=== PATIENT | male | born 1945 | race Caucasian/White ===

== ENCOUNTER 2018-12-10 13:31 | Emergency (ER) | payer MEDICARE, MEDICAID ==
[2018-12-10] MEDS ORDERED: Ibuprofen 800 MG Tab ONE (14:00)
--- NOTE | 2018-12-10 14:06 | EDM.PDOC ---
ED HPI GENERAL MEDICAL PROBLEM - General Chief Complaint: General Stated Complaint: LOW BACK PAIN Time Seen by Provider: 12/10/18 13:45 Source of Information: Reports: Other ([facility] staff) History Limitations: Reports: Physical Impairment - History of Present Illness INITIAL COMMENTS - FREE TEXT/NARRATIVE: Pt is a 73/male resident of [facility]. According to [facility] staff, , patient fell and landed on his face forward, but did not hurt his face. this happened last night around 11 PM last night. Since then patient has been able to getup and walk, but today morning has been c/o of right sided hip pain and lower back pain. Hence he was brought into the emergency room for evaluation. On questioning patient , he points to the right hip and back with pain. No facial injuries or any other complaints per patient. Onset Date: 12/09/18 Onset Time: 23:05 Location: Reports: Back, Lower Extremity, Right - Related Data Allergies Allergy/AdvReac Type Severity Reaction Status Date / Time No Known Allergies Allergy Verified 08/18/18 08:50 Home Meds: Home Meds Aspirin [Ecotrin] 81 mg PO DAILY 12/03/14 [History] Doxazosin Mesylate 4 mg PO QPM 12/03/14 [History] Insulin Aspart [NovoLOG] 26 units SQ TID 12/03/14 [History] Insulin Glarg,Human.Rec.Analog [Lantus Solostar] 40 units SQ DAILY 12/03/14 [ History] Lisinopril/Hydrochlorothiazide [Lisinopril-Hctz 20-12.5 mg Tab] 1 tab PO DAILY 12/03/14 [History] Omeprazole [Prilosec] 20 mg PO DAILY 12/03/14 [History] Simvastatin 20 mg PO QPM 12/03/14 [History] amLODIPine Besylate [Amlodipine Besylate] 5 mg PO DAILY 12/03/14 [History] risperiDONE [RisperiDAL] 1.5 mg PO QPM 12/03/14 [History] FLUoxetine HCl [Fluoxetine HCl] 40 mg PO DAILY 12/04/14 [History] Multivitamin [Multi-Vitamin Daily] 1 tab PO DAILY 12/04/14 [History] Calcium Carbonate [Calcium] 600 mg PO BID 08/18/18 [History] Liraglutide [Victoza 3-Addy] 1.2 mg SUBCUT DAILY 08/18/18 [History] Past Medical History Cardiovascular History: Reports: High Cholesterol, Hypertension Respiratory History: Reports: None Gastrointestinal History: Reports: GERD Genitourinary History: Reports: Urinary Incontinence Other Musculoskeletal History: Uses walker Neurological History: Reports: CVA Psychiatric History: Reports: Depression Endocrine/Metabolic History: Reports: Diabetes, Type II Hematologic History: Reports: None Immunologic History: Reports: None Oncologic (Cancer) History: Reports: None Other Dermatologic History: Skin lesions, skin tags, numerous moles Social & Family History - Family History Family Medical History: Noncontributory - Caffeine Use Caffeine Use: Reports: Coffee, Soda - Living Situation & Occupation Living situation: Reports: Extended Care Facility Occupation: Disabled ED ROS GENERAL - Review of Systems Review Of Systems: Unable To Obtain (due to patient general health condition.) ED EXAM, GENERAL - Physical Exam Exam: See Below Exam Limited By: No Limitations General Appearance: Alert, WD/WN, Mild Distress Eye Exam: Bilateral Eye: EOMI, PERRL Ears: Normal External Exam, Normal Canal, Hearing Grossly Normal, Normal TMs Ear Exam: Bilateral Ear: Auricle Normal, Canal Normal, TM normal Nose: Normal Inspection, Normal Mucosa, No Blood Throat/Mouth: Normal Inspection, Normal Lips, Normal Teeth, Normal Gums, Normal Oropharynx, Normal Voice, No Airway Compromise Head: Atraumatic, Normocephalic Neck: Normal Inspection, Supple, Non-Tender, Full Range of Motion Respiratory/Chest: No Respiratory Distress, Lungs Clear, Normal Breath Sounds, No Accessory Muscle Use, Chest Non-Tender Cardiovascular: Normal Peripheral Pulses, Regular Rate, Rhythm, No Edema, No Gallop, No JVD, No Murmur, No Rub GI/Abdominal: Normal Bowel Sounds, Soft, Non-Tender, No Organomegaly, No Distention, No Abnormal Bruit, No Mass Back Exam: Normal Inspection, Decreased Range of Motion, Paraspinal Tenderness ( right lumbar paraspinal muscles). No: Vertebral Tenderness Extremities: Normal Inspection, Normal Capillary Refill, Limited Range of Motion (limited flexion of the right hip. Tender over the head of the right femur to palaption) Neurological: Alert Skin Exam: Warm, Intact Course - Vital Signs Text/Narrative:: Pt reassured that his Right hip and Lumbosacral X-ray appear normal. I do not see any fracture or deformity fo the joint and spine. He basically has mechanical pain from the fall. Advised to alternate cold with heat every 2-3 hrs. Motrin 800mg 3 times daily with food. Pain should gradually improve. Pt is a overweight mail, would benefit with physical therapy evaluation, to help with ambulation and proximal muscle strengthening of the pelvic girdle. Pt transferred back to [facility]. - Orders/Labs/Meds Orders: Active Orders 24 hr Category Date Time Status Hip Min 2V or 3V Rt [CR] Stat Exams 12/10/18 13:54 Ordered Lumbar Spine 2 or 3V [CR] Stat Exams 12/10/18 13:54 Ordered Departure - Departure Time of Disposition: 14:20 Disposition: DC/Tfer to [facility] Condition: Fair Clinical Impression: Mechanical low back pain, Hip pain, right - Discharge Information *PRESCRIPTION DRUG MONITORING PROGRAM REVIEWED*: Not Applicable *COPY OF PRESCRIPTION DRUG MONITORING REPORT IN PATIENT EMERSON: Not Applicable Referrals: PCP,None [Primary Care Provider] - Forms: ED Department Discharge Additional Instructions: Pt reassured that his Right hip and Lumbosacral X-ray appear normal. I do not see any fracture or deformity fo the joint and spine. He basically has mechanical pain from the fall. Advised to alternate cold with heat every 2-3 hrs. Motrin 800mg 3 times daily with food. Pain should gradually improve. Pt is a overweight mail, would benefit with physical therapy evaluation, to help with ambulation and proximal muscle strengthening of the pelvic girdle. Pt transferred back to [facility]. - Problem List & Annotations (1) Hip pain, right SNOMED Code(s): 80337584 Code(s): M25.551 - PAIN IN RIGHT HIP Status: Acute Current Visit: Yes (2) Mechanical low back pain SNOMED Code(s): 027426181 Code(s): M54.5 - LOW BACK PAIN Status: Acute Current Visit: Yes - Problem List Review Problem List Initiated/Reviewed/Updated: Yes - My Orders Last 24 Hours: My Active Orders 12/10/18 13:54 Hip Min 2V or 3V Rt [CR] Stat Lumbar Spine 2 or 3V [CR] Stat - Assessment/Plan Last 24 Hours: My Active Orders 12/10/18 13:54 Hip Min 2V or 3V Rt [CR] Stat Lumbar Spine 2 or 3V [CR] Stat Assessment:: Mechanical low back pain and right hip pain Plan: Pt reassured that his Right hip and Lumbosacral X-ray appear normal. I do not see any fracture or deformity fo the joint and spine. He basically has mechanical pain from the fall. Advised to alternate cold with heat every 2-3 hrs. Motrin 800mg 3 times daily with food. Pain should gradually improve. Pt is a overweight mail, would benefit with physical therapy evaluation, to help with ambulation and proximal muscle strengthening of the pelvic girdle. Pt transferred back to care center.
[2018-12-10 15:00] VITALS: BP 135/69
--- NOTE | 2018-12-11 11:29 | CR ---
DATE OF SERVICE: 12/10/18 CLINICAL DATA: fall LUMBAR SPINE: There is diffuse osteopenia. there is slight compression deformity of the superior end plate of L1, age indeterminate. The remaining vertebra are of average height and in good alignment. There is mild degenerative disc disease at multiple levels. There is mild facet joint hypertrophy of the mid and lower lumbar spine. No focal lytic or blastic bone lesions. There is calcification of the abdominal aorta. [id number] [facility]
--- NOTE | 2018-12-11 11:32 | CR ---
DATE OF SERVICE: 12/10/18 CLINICAL DATA: fall RIGHT HIP: Minimal osteoarthritic changes in the right hip joint. No acute abnormalities. No lytic or blastic bone lesions. [id number] [facility]
== END 2018-12-10 14:30 ==
LOC: LB.ED 13:31
DX: M54.5 Low back pain (principal); M25.551 Pain in right hip; I10 Essential (primary) hypertension; E11.9 Type 2 diabetes mellitus without complications; K21.9 Gastro-esophageal reflux disease without esophagitis; E78.00 Pure hypercholesterolemia, unspecified; Z79.4 Long term (current) use of insulin; Z79.899 Other long term (current) drug therapy; Z79.82 Long term (current) use of aspirin
CPT/HCPCS: 72100; 73502-RT; 99283; 99284-25; A9270-GY

== ENCOUNTER 2019-06-29 15:16 | Emergency (ER) | payer MEDICARE, MEDICAID ==
[2019-06-29] MEDS ORDERED: Ketorolac 30 MG/ML SDV IVPUSH ONE (15:28)
[2019-06-29] MEDS ORDERED: Sodium Chloride 0.9% 10 ML Syringe FLUSH PRN (15:28)
[2019-06-29 15:54] VITALS: BP 144/85; PULSE 79
--- NOTE | 2019-06-29 16:54 | EDM.PDOC ---
ED HPI GENERAL MEDICAL PROBLEM - General Chief Complaint: General Stated Complaint: chest pain Time Seen by Provider: 06/29/19 16:00 Source of Information: Reports: Patient, [facility] History Limitations: Reports: No Limitations - History of Present Illness INITIAL COMMENTS - FREE TEXT/NARRATIVE: This is a 73yo M with complaints of chest pain. He currently states the pain has resolved. It was reported by nursing staff he was having shortness of breath but had a pulse ox of 96% and then some abdominal pains that he denies in the ER. He also denies any shortness of breath at this time. He states he is hungry and just wants to eat. Onset: Unknown/Unsure Duration: Resolved Prior to Arrival Location: Reports: Chest Improves with: Reports: None Worsens with: Reports: None Middle Chest Pain Score (Numeric/FACES): 5 - Related Data Allergies Allergy/AdvReac Type Severity Reaction Status Date / Time No Known Allergies Allergy Verified 08/18/18 08:50 Home Meds: Home Meds Aspirin [Ecotrin EC] 81 mg PO DAILY 12/03/14 [History] Doxazosin Mesylate 4 mg PO QPM 12/03/14 [History] Insulin Aspart [NovoLOG] 26 units SQ TID 12/03/14 [History] Insulin Glarg,Human.Rec.Analog [Lantus Solostar] 40 units SQ DAILY 12/03/14 [ History] Lisinopril/Hydrochlorothiazide [Lisinopril-Hctz 20-12.5 mg Tab] 1 tab PO DAILY 12/03/14 [History] Omeprazole [Prilosec] 20 mg PO DAILY 12/03/14 [History] Simvastatin 20 mg PO QPM 12/03/14 [History] amLODIPine Besylate [Amlodipine Besylate] 5 mg PO DAILY 12/03/14 [History] risperiDONE [RisperiDAL] 1.5 mg PO QPM 12/03/14 [History] FLUoxetine HCl [Fluoxetine HCl] 40 mg PO DAILY 12/04/14 [History] Multivitamin [Multi-Vitamin Daily] 1 tab PO DAILY 12/04/14 [History] Calcium Carbonate [Calcium] 600 mg PO BID 08/18/18 [History] Liraglutide [Victoza 3-Addy] 1.2 mg SUBCUT DAILY 08/18/18 [History] Past Medical History Cardiovascular History: Reports: High Cholesterol, Hypertension Respiratory History: Reports: None Gastrointestinal History: Reports: GERD Genitourinary History: Reports: Urinary Incontinence Other Musculoskeletal History: Uses walker Neurological History: Reports: CVA Psychiatric History: Reports: Depression Endocrine/Metabolic History: Reports: Diabetes, Type II Hematologic History: Reports: None Immunologic History: Reports: None Oncologic (Cancer) History: Reports: None Other Dermatologic History: Skin lesions, skin tags, numerous moles Social & Family History - Family History Family Medical History: Noncontributory - Caffeine Use Caffeine Use: Reports: Coffee, Soda - Living Situation & Occupation Living situation: Reports: Extended Care Facility Occupation: Disabled ED ROS GENERAL - Review of Systems Review Of Systems: ROS reveals no pertinent complaints other than HPI. ED EXAM, GENERAL - Physical Exam Exam: See Below Exam Limited By: No Limitations General Appearance: Alert, WD/WN, No Apparent Distress Eye Exam: Bilateral Eye: EOMI, PERRL Ears: Normal External Exam Nose: Normal Inspection Throat/Mouth: Normal Inspection Head: Atraumatic, Normocephalic Neck: Normal Inspection Respiratory/Chest: No Respiratory Distress Cardiovascular: Normal Peripheral Pulses GI/Abdominal: Normal Bowel Sounds Back Exam: Normal Inspection Extremities: Normal Inspection Course - Vital Signs Last Recorded V/S: Last Vital Signs Temp 36.9 C 06/29/19 15:52 Pulse 79 06/29/19 15:52 Resp 16 06/29/19 15:52 BP 144/85 H 06/29/19 15:52 Pulse Ox 95 06/29/19 15:52 - Orders/Labs/Meds Orders: Active Orders 24 hr Category Date Time Status EKG Documentation Completion [RC] ASDIRECTED Care 06/29/19 15:28 Active Chest 1V Frontal [CR] Stat Exams 06/29/19 15:28 Taken Sodium Chloride 0.9% [Saline Flush] Med 06/29/19 15:28 Active 10 ml FLUSH ASDIRECTED PRN Peripheral IV Insertion Adult [OM.PC] Routine Oth 06/29/19 15:28 Ordered EKG 12 Lead [EK] Routine Ther 06/29/19 15:27 Ordered Medication Orders Sodium Chloride (Saline Flush) 10 ml FLUSH ASDIRECTED PRN PRN Reason: Keep Vein Open Labs: Laboratory Tests 06/29/19 06/29/19 Range/Units 15:40 15:40 WBC 7.8 (4.0-11.0) K/uL RBC 3.88 L (4.50-6.50) M/uL Hgb 10.7 L (13.0-18.0) g/dL Hct 35.1 L (40.0-54.0) % MCV 91 (76-96) fL MCH 27.6 (27.0-32.0) pg MCHC 30.5 L (31.0-35.0) g/dL RDW 14.7 (11.0-16.0) % Plt Count 260 (150-400) K/uL MPV 10.2 H (6.0-10.0) fL Neut % (Auto) 75.1 H (45.0-70.0) % Lymph % (Auto) 15.1 L (20.0-40.0) % [place] % (Auto) 5.5 (3.0-10.0) % Eos % (Auto) 2.8 (1.0-5.0) % Baso % (Auto) 1.5 H (0.0-0.5) % Neut # (Auto) 5.82 (2.00-7.50) K/uL Lymph # (Auto) 1.17 L (1.50-4.00) K/uL [place] # (Auto) 0.43 (0.20-0.80) K/uL Eos # (Auto) 0.22 (0.04-0.40) K/uL Baso # (Auto) 0.12 H (0.02-0.10) K/uL Sodium 143 (136-145) mmol/L Potassium 4.0 (3.5-5.1) mmol/L Chloride 106 (98-107) mmol/L Carbon Dioxide 26.0 (21.0-32.0) mmol/L Anion Gap 15.0 (5.0-15.0) mmol/L BUN 31 H (8-26) mg/dL Creatinine 1.25 (0.70-1.30) mg/dL Est Cr Clr Drug Dosing 52.44 mL/min Estimated GFR (MDRD) 57 L (>60) MLS/MIN BUN/Creatinine Ratio 24.8 (6-25) Glucose 215 H D (74-100) mg/dL Calcium 8.4 L (8.5-10.1) mg/dL Total Bilirubin 0.3 D (0.0-1.0) mg/dL AST 15 (15-37) U/L ALT 16 (12-78) U/L Alkaline Phosphatase 66 (46-116) U/L Troponin I < 0.017 (0.000-0.060) ng/mL Total Protein 6.7 (6.4-8.2) g/dL Albumin 3.1 L (3.4-5.0) g/dL Globulin 3.6 (2.2-4.2) g/dL Albumin/Globulin Ratio 0.9 (0.8-2.0) TSH, Ultra Sensitive 3.894 H D (0.358-3.740) uIU/mL Meds: Medications Generic Name Dose Route Start Last Admin Trade Name Freq PRN Reason Stop Dose Admin Sodium Chloride 10 ml 06/29/19 15:28 Saline Flush FLUSH ASDIRECTED PRN Keep Vein Open Discontinued Medications Generic Name Dose Route Start Last Admin Trade Name Freq PRN Reason Stop Dose Admin Ketorolac Tromethamine 30 mg 06/29/19 15:28 Toradol IVPUSH 06/29/19 15:29 ONETIME ONE Departure - Departure Time of Disposition: 17:00 Disposition: DC/Tfer to [facility] Condition: Good Clinical Impression: Anxiety attack - Discharge Information Instructions: Panic Attack, [id number] Referrals: PCP,None [Primary Care Provider] - Forms: ED Department Discharge Care Plan Goals: No changes in pts plan of care. Return to hospital or clinic if symptoms return or worsen. - Problem List & Annotations (1) Anxiety attack SNOMED Code(s): 965035619 Code(s): F41.0 - PANIC DISORDER [EPISODIC PAROXYSMAL ANXIETY] Status: Acute Current Visit: Yes - Problem List Review Problem List Initiated/Reviewed/Updated: Yes - My Orders Last 24 Hours: My Active Orders 06/29/19 15:27 EKG 12 Lead [EK] Routine 06/29/19 15:28 EKG Documentation Completion [RC] ASDIRECTED Chest 1V Frontal [CR] Stat Sodium Chloride 0.9% [Saline Flush] 10 ml FLUSH ASDIRECTED PRN Peripheral IV Insertion Adult [OM.PC] Routine - Assessment/Plan Last 24 Hours: My Active Orders 06/29/19 15:27 EKG 12 Lead [EK] Routine 06/29/19 15:28 EKG Documentation Completion [RC] ASDIRECTED Chest 1V Frontal [CR] Stat Sodium Chloride 0.9% [Saline Flush] 10 ml FLUSH ASDIRECTED PRN Peripheral IV Insertion Adult [OM.PC] Routine Plan: Counseled patient on anxiety and continued f/u as needed. Discussed f/u if symptoms return. No changes to his medications.
--- NOTE | 2019-06-30 11:48 | CR ---
DATE OF SERVICE: 06/29/19 CLINICAL DATA: chest pain AP PORTABLE CHEST: Comparison is made to a prior exam dated 04/18/19. The heart is enlarged. It has increased in size from the prior exam. There is pulmonary vascular congestion. There is mild interstitial edema throughout both lungs. The findings are consistent with congestive failure. No pneumothorax. No pleural effusions. [id number] [facility]
== END 2019-06-29 17:06 ==
LOC: LB.ED 15:16
DX: F41.9 Anxiety disorder, unspecified (principal); I10 Essential (primary) hypertension; K21.9 Gastro-esophageal reflux disease without esophagitis; E11.9 Type 2 diabetes mellitus without complications; Z86.73 Personal history of transient ischemic attack (TIA), and cerebral infarction without residual deficits; Z79.4 Long term (current) use of insulin; Z79.899 Other long term (current) drug therapy; Z79.82 Long term (current) use of aspirin
CPT/HCPCS: 36415; 71045; 80053; 84443; 84484; 85025; 93005; 99285-25

== ENCOUNTER → 2019-09-01 | Outpatient (CLI) | payer MEDICARE, MEDICAID | LOC: LB.CC 12:38 | PROVIDERS: ATTEND Nurse Practitioner Family | DX: R30.0 Dysuria (principal) | CPT/HCPCS: 81001 ==

== ENCOUNTER 2019-09-14 16:35 | Emergency (ER) | payer MEDICARE, MEDICAID ==
[2019-09-14] MEDS: Aspirin 81 MG Tab.Chew PO ONE (16:49)
[2019-09-14] MEDS ORDERED: Sodium Chloride 0.9% 10 ML Syringe FLUSH PRN (16:57)
[2019-09-14 17:21] VITALS: PULSE 90
[2019-09-14 17:35] VITALS: BP 131/75
[2019-09-14] MEDS: GI Cocktail Oral Solution 30 ML PO ONE (17:35)
--- NOTE | 2019-09-14 18:10 | CR ---
CLINICAL DATA: Chest pain. PORTABLE CHEST, 14 SEPTEMBER 2019: Comparison made to a prior exam dated June 29, 2019. The heart remains enlarged, unchanged. The pulmonary vascular congestion and interstitial edema on the prior exam have improved. The lungs are clear. No pneumothorax. No pleural effusions. Otherwise, unchanged from the prior. Job: [id number] [facility]
--- NOTE | 2019-09-14 22:50 | ER ---
REASON FOR ER VISIT: Chest pain. HISTORY OF PRESENT ILLNESS: This patient was sent over from the [facility] because of low anterior chest pain. No other details were conveyed to us. The patient by the time he arrived in the ER, stated that he wanted to return back to the [place] [facility] because he was hungry. He did not have any nausea or diaphoresis. On questioning, he denied any radiation down his nose, down his arm, or up his neck. He denies any nausea. PAST MEDICAL HISTORY: Significant for the followin. Hypertension. 2. History of UTI. 3. Type 2 diabetes. 4. History of atypical chest pain. 5. Low back pain. 6. Anxiety. 7. Hypercholesterolemia. MEDICATIONS: Reviewed. Please see electronic medical record. ALLERGIES: NONE TO MEDICATIONS. REVIEW OF SYSTEMS: Pertinent positives and negatives as listed in the HPI. PHYSICAL EXAMINATION: GENERAL: Reveals he seems somewhat restless and anxious and complaining of being hungry. VITAL SIGNS: He is afebrile. Blood pressure 133/61, pulse of 90, respiratory rate is 20, O2 sats 100% on room air. HEENT: He looks somewhat pale. No scleral icterus is noted. Oropharynx is dry. NECK: No JVD. No adenopathy. CHEST: Clear to auscultation with good breath sounds. No wheezes, rhonchi, or rales. CARDIAC: Regular rate without murmur. ABDOMEN: Obese and soft. He does have some mild tenderness in the epigastrium to deep palpation but no rebound or guarding. No percussion tenderness. No hepatosplenomegaly is noted. EXTREMITIES: Normal. His feet are pink and warm. I do not feel ankle pulses. There is minimal edema noted. LABORATORY DATA: [place] [address] [address]. His CMP reveals normal electrolytes. His creatinine is elevated at 1.5 with a GFR of 43. His glucose is 196. His troponin is within normal limits. His is 12-lead EKG shows no acute changes. His chest x-ray was a portable film, and it does appear that he has cardiomegaly, although the technique has to be taken into consideration. He has no sign of infiltrate or pulmonary edema. FURTHER EMERGENCY ROOM COURSE: He continued to complain of being hungry and he when asked 1 time if he had some chest pain, he said yes and then he pointed to his epigastrium, when asked again he said he had no pain, but he was hungry. IMPRESSION: Atypical chest pain with epigastric discomfort, of uncertain origin. PLAN: We will go and ahead and return him to the [place] [facility]. He has been here for similar symptom complex in the past, and I feel comfortable given his EKG and troponin findings. ROSY /[id number]
== END 2019-09-14 17:55 | disposition home or self-care (01) ==
LOC: LB.ED 16:35
DX: R07.89 Other chest pain (principal); R10.13 Epigastric pain; I10 Essential (primary) hypertension; E11.9 Type 2 diabetes mellitus without complications
CPT/HCPCS: 36415; 71045; 80053; 84484; 85025; 93005; 99285; A9270

== ENCOUNTER 2020-11-20 12:19 | Observation (INO) | payer MEDICARE, MEDICAID ==
[2020-11-20] MEDS ORDERED: Sodium Chloride 0.9% 1,000 ML IV SCH ×2 (13:00→22:00)
--- NOTE | 2020-11-20 13:01 | EDM.PDOC ---
ED HPI GENERAL MEDICAL PROBLEM - General Chief Complaint: General Stated Complaint: STROKE SYMPTOMS Time Seen by Provider: 11/20/20 12:30 Source of Information: Reports: Patient - History of Present Illness INITIAL COMMENTS - FREE TEXT/NARRATIVE: 75 years old male known diabetic ,HTN & anti-psychotic meds having repeated episodes of TIA was living in custodial home & brought to ER for unresponsive - The patient was not answering to questions -only respond to painful . Proper history was not available - prison said that he was not responding since morning - denies fever,nausea/vomiting ,headche ,chest pain ,cough,abd pain - Related Data Allergies Allergy/AdvReac Type Severity Reaction Status Date / Time No Known Allergies Allergy Verified 11/20/20 12:42 Home Meds: Home Meds Insulin Aspart [NovoLOG] 20 units SQ TID 12/03/14 [History] Simvastatin 20 mg PO QPM 12/03/14 [History] risperiDONE [RisperiDAL] 1 mg PO BID 12/03/14 [History] FLUoxetine HCl [Fluoxetine HCl] 50 mg PO DAILY 12/04/14 [History] Multivitamin [Multi-Vitamin Daily] 1 tab PO DAILY 12/04/14 [History] Calcium Carbonate [Calcium] 600 mg PO BID 08/18/18 [History] Liraglutide [Victoza 3-Addy] 0.6 mg SUBCUT DAILY 08/18/18 [History] Acetaminophen [Tylenol] 650 mg PO TID 11/20/20 [History] Calcitonin,[place],Synthetic [Calcitonin-[place]] 1 spray INH DAILY 11/20/20 [History] Ciprofloxacin HCl [Cipro] 500 mg PO BID 11/20/20 [History] Famotidine 20 mg PO BID 11/20/20 [History] Furosemide [Lasix] 40 mg PO BID 11/20/20 [History] Gabapentin [Neurontin] 100 mg PO BID 11/20/20 [History] Insulin Detemir [Levemir Flextouch] 40 unit SQ BEDTIME 11/20/20 [History] Loperamide HCl [Imodium A-D] 2 mg PO Q1H 11/20/20 [History] Losartan Potassium [Cozaar] 75 mg PO DAILY 11/20/20 [History] Magnesium Hydroxide [Milk of Magnesia] 30 ml PO BID PRN 11/20/20 [History] Melatonin 6 mg PO BEDTIME 11/20/20 [History] Meloxicam 7.5 mg PO BID 11/20/20 [History] Menthol [Biofreeze] 1 applic TOP BID 11/20/20 [History] Potassium Chloride [Klor-Con 10] 10 meq PO DAILY 11/20/20 [History] hydrOXYzine HCL [Hydroxyzine HCl] 25 mg PO TID 11/20/20 [History] hydroCHLOROthiazide [Hydrochlorothiazide] 25 mg PO DAILY 11/20/20 [History] traZODone HCl [Trazodone HCl] 50 mg PO DAILY 11/20/20 [History] Past Medical History Cardiovascular History: Reports: High Cholesterol, Hypertension Respiratory History: Reports: None Gastrointestinal History: Reports: GERD Genitourinary History: Reports: Urinary Incontinence Other Musculoskeletal History: Uses walker Neurological History: Reports: CVA Psychiatric History: Reports: Depression Endocrine/Metabolic History: Reports: Diabetes, Type II Hematologic History: Reports: None Immunologic History: Reports: None Oncologic (Cancer) History: Reports: None Other Dermatologic History: Skin lesions, skin tags, numerous moles Social & Family History - Family History Family Medical History: No Pertinent Family History - Caffeine Use Caffeine Use: Reports: Coffee, Soda - Living Situation & Occupation Living situation: Reports: Extended Care Facility Occupation: Disabled ED ROS GENERAL - Review of Systems Review Of Systems: See Below Constitutional: Reports: ROS unobtainable Respiratory: Reports: No Symptoms Cardiovascular: Reports: No Symptoms, Other (found unconcious ) GI/Abdominal: Reports: No Symptoms Musculoskeletal: Reports: No Symptoms Neurological: Reports: Dizziness, Other (unresponsive ) ED EXAM, GENERAL - Physical Exam Exam: See Below Exam Limited By: Altered Mental Status Head: Atraumatic, Normocephalic Respiratory/Chest: No Respiratory Distress Cardiovascular: Regular Rate, Rhythm, No Edema, No Gallop, No JVD, No Murmur GI/Abdominal: Soft, Non-Tender, No Organomegaly, No Distention, No Abnormal Bruit Neurological: Slow to Respond, Unresponsive, Memory Loss Remote Events, Memory Loss Recent Events, Abnormal Reflexes, Sensory/Motor Deficit (left leg & left arm not responding ) Course - Vital Signs Text/Narrative:: Pt came from detention & was unresponsive I/V line established Pt was not responding to painful stimuli . I/V hydration started . Patient was not moving his left side of body /discuss EKG & condition of th patient with E-hospitalist Call to Neurologist at [facility] dr Borrero to discuss the TPA -she said that he is not candidate for for TPA -She said that ask for endovascular on [facility] for endovascular removal of clot . I spoke with DR Jane - He did agree for the interventional procedure -I spoke back DR Borrero * dr Becerra to transfer to [facility] - Arrangements made for transfer -BUt family decline Discuss with family & admitted for observation contact with E hospitalist to see the patient PT had DNR in place Last Recorded V/S: Last Vital Signs Temp 97.7 F 11/20/20 15:41 Pulse 86 11/20/20 18:31 Resp 16 11/20/20 18:31 BP 188/85 H 11/20/20 18:31 Pulse Ox 100 11/20/20 18:31 - Orders/Labs/Meds Orders: Active Orders 24 hr Category Date Time Status Patient Status [ADT] Routine ADT 11/20/20 18:30 Active EKG Documentation Completion [RC] ASDIRECTED Care 11/20/20 12:38 Active Oxygen Therapy [RC] PRN Care 11/20/20 18:30 Active VTE/DVT Education [RC] Per Unit Routine Care 11/20/20 18:30 Active Vital Signs [RC] Q4H Care 11/20/20 18:30 Active NPO [Nothing Per Oral Diet] [DIET] Diet 11/21/20 Breakfast Ordered CULTURE URINE [RM] Stat Lab 11/20/20 13:20 Received Sodium Chloride 0.9% [Normal Saline] 1,000 ml Med 11/20/20 13:00 Active IV ASDIRECTED Resuscitation Status Routine Resus Stat 11/20/20 18:29 Ordered Medication Orders Sodium Chloride (Normal Saline) 1,000 mls @ 250 mls/hr IV ASDIRECTED ZAHRAA Last Admin: 11/20/20 12:59 Dose: 250 mls/hr Documented by: CHERELLE Labs: Laboratory Tests 11/20/20 11/20/20 11/20/20 Range/Units 12:36 12:36 12:36 WBC 9.3 D (4.0-11.0) K/uL RBC 3.91 L (4.50-6.50) M/uL Hgb 11.6 L (13.0-18.0) g/dL Hct 37.8 L (40.0-54.0) % MCV 97 H (76-96) fL MCH 29.7 (27.0-32.0) pg MCHC 30.7 L (31.0-35.0) g/dL RDW 13.7 (11.0-16.0) % Plt Count 249 (150-400) K/uL MPV 10.9 H (6.0-10.0) fL Neut % (Auto) 76.0 H (45.0-70.0) % Lymph % (Auto) 12.6 L (20.0-40.0) % [place] % (Auto) 6.4 (3.0-10.0) % Eos % (Auto) 3.6 (1.0-5.0) % Baso % (Auto) 1.4 H (0.0-0.5) % Neut # (Auto) 7.05 (2.00-7.50) K/uL Lymph # (Auto) 1.17 L (1.50-4.00) K/uL [place] # (Auto) 0.59 (0.20-0.80) K/uL Eos # (Auto) 0.33 (0.04-0.40) K/uL Baso # (Auto) 0.13 H (0.02-0.10) K/uL PT 10.6 (9.0-11.5) sec INR 1.0 (1.0-3.5) D-Dimer, Quantitative 714 H (0-400) ng/mL Sodium (136-145) mmol/L Potassium (3.5-5.1) mmol/L Chloride (98-107) mmol/L Carbon Dioxide (21.0-32.0) mmol/L Anion Gap (5.0-15.0) mmol/L BUN (8-26) mg/dL Creatinine (0.70-1.30) mg/dL Est Cr Clr Drug Dosing Estimated GFR (MDRD) (>60) MLS/MIN BUN/Creatinine Ratio (6-25) Glucose (74-100) mg/dL Calcium (8.5-10.1) mg/dL Magnesium (1.8-2.4) mg/dL Total Bilirubin (0.0-1.0) mg/dL AST (15-37) U/L ALT (12-78) U/L Alkaline Phosphatase (46-116) U/L Troponin I (0.000-0.060) ng/mL Total Protein (6.4-8.2) g/dL Albumin (3.4-5.0) g/dL Globulin (2.2-4.2) g/dL Albumin/Globulin Ratio (0.8-2.0) Urine Color Urine Appearance (CLEAR) Urine pH (5.0-8.0) Ur Specific [place] (1.003-1.030) Urine Protein (NEGATIVE) mg/dL Urine Glucose (UA) (NEGATIVE) mg/dL Urine Ketones (NEGATIVE) mg/dL Urine Occult Blood (NEGATIVE) Urine Nitrite (NEGATIVE) Urine Bilirubin (NEGATIVE) Urine Urobilinogen (0.2-1.0) E.U./dL Ur Leukocyte Esterase (NEGATIVE) U Hyaline Cast (Auto) /HPF Urine RBC Urine WBC /HPF Urine Bacteria /HPF SARS-CoV-2 RNA (BHARAT) (NEGATIVE) 11/20/20 11/20/20 11/20/20 Range/Units 12:36 13:20 13:20 WBC (4.0-11.0) K/uL RBC (4.50-6.50) M/uL Hgb (13.0-18.0) g/dL Hct (40.0-54.0) % MCV (76-96) fL MCH (27.0-32.0) pg MCHC (31.0-35.0) g/dL RDW (11.0-16.0) % Plt Count (150-400) K/uL MPV (6.0-10.0) fL Neut % (Auto) (45.0-70.0) % Lymph % (Auto) (20.0-40.0) % [place] % (Auto) (3.0-10.0) % Eos % (Auto) (1.0-5.0) % Baso % (Auto) (0.0-0.5) % Neut # (Auto) (2.00-7.50) K/uL Lymph # (Auto) (1.50-4.00) K/uL [place] # (Auto) (0.20-0.80) K/uL Eos # (Auto) (0.04-0.40) K/uL Baso # (Auto) (0.02-0.10) K/uL PT (9.0-11.5) sec INR (1.0-3.5) D-Dimer, Quantitative (0-400) ng/mL Sodium 146 H (136-145) mmol/L Potassium 4.2 (3.5-5.1) mmol/L Chloride 105 (98-107) mmol/L Carbon Dioxide 39.4 H (21.0-32.0) mmol/L Anion Gap 5.8 (5.0-15.0) mmol/L BUN 52 H* D (8-26) mg/dL Creatinine 2.52 H (0.70-1.30) mg/dL Est Cr Clr Drug Dosing TNP Estimated GFR (MDRD) 25 L (>60) MLS/MIN BUN/Creatinine Ratio 20.6 (6-25) Glucose 260 H (74-100) mg/dL Calcium 9.8 (8.5-10.1) mg/dL Magnesium 2.3 (1.8-2.4) mg/dL Total Bilirubin 0.3 (0.0-1.0) mg/dL AST 14 L (15-37) U/L ALT 22 (12-78) U/L Alkaline Phosphatase 80 (46-116) U/L Troponin I 0.029 D (0.000-0.060) ng/mL Total Protein 7.0 (6.4-8.2) g/dL Albumin 3.2 L (3.4-5.0) g/dL Globulin 3.8 (2.2-4.2) g/dL Albumin/Globulin Ratio 0.8 (0.8-2.0) Urine Color Yellow Urine Appearance Clear (CLEAR) Urine pH 6.5 (5.0-8.0) Ur Specific [place] 1.020 (1.003-1.030) Urine Protein Negative (NEGATIVE) mg/dL Urine Glucose (UA) Negative (NEGATIVE) mg/dL Urine Ketones Negative (NEGATIVE) mg/dL Urine Occult Blood Negative (NEGATIVE) Urine Nitrite Negative (NEGATIVE) Urine Bilirubin Negative (NEGATIVE) Urine Urobilinogen 0.2 (0.2-1.0) E.U./dL Ur Leukocyte Esterase Trace H (NEGATIVE) U Hyaline Cast (Auto) Moderate /HPF Urine RBC Not Reportable Urine WBC 0-5 H /HPF Urine Bacteria Few /HPF SARS-CoV-2 RNA (BHARAT) (NEGATIVE) 11/20/20 Range/Units 15:48 WBC (4.0-11.0) K/uL RBC (4.50-6.50) M/uL Hgb (13.0-18.0) g/dL Hct (40.0-54.0) % MCV (76-96) fL MCH (27.0-32.0) pg MCHC (31.0-35.0) g/dL RDW (11.0-16.0) % Plt Count (150-400) K/uL MPV (6.0-10.0) fL Neut % (Auto) (45.0-70.0) % Lymph % (Auto) (20.0-40.0) % [place] % (Auto) (3.0-10.0) % Eos % (Auto) (1.0-5.0) % Baso % (Auto) (0.0-0.5) % Neut # (Auto) (2.00-7.50) K/uL Lymph # (Auto) (1.50-4.00) K/uL [place] # (Auto) (0.20-0.80) K/uL Eos # (Auto) (0.04-0.40) K/uL Baso # (Auto) (0.02-0.10) K/uL PT (9.0-11.5) sec INR (1.0-3.5) D-Dimer, Quantitative (0-400) ng/mL Sodium (136-145) mmol/L Potassium (3.5-5.1) mmol/L Chloride (98-107) mmol/L Carbon Dioxide (21.0-32.0) mmol/L Anion Gap (5.0-15.0) mmol/L BUN (8-26) mg/dL Creatinine (0.70-1.30) mg/dL Est Cr Clr Drug Dosing Estimated GFR (MDRD) (>60) MLS/MIN BUN/Creatinine Ratio (6-25) Glucose (74-100) mg/dL Calcium (8.5-10.1) mg/dL Magnesium (1.8-2.4) mg/dL Total Bilirubin (0.0-1.0) mg/dL AST (15-37) U/L ALT (12-78) U/L Alkaline Phosphatase (46-116) U/L Troponin I (0.000-0.060) ng/mL Total Protein (6.4-8.2) g/dL Albumin (3.4-5.0) g/dL Globulin (2.2-4.2) g/dL Albumin/Globulin Ratio (0.8-2.0) Urine Color Urine Appearance (CLEAR) Urine pH (5.0-8.0) Ur Specific [place] (1.003-1.030) Urine Protein (NEGATIVE) mg/dL Urine Glucose (UA) (NEGATIVE) mg/dL Urine Ketones (NEGATIVE) mg/dL Urine Occult Blood (NEGATIVE) Urine Nitrite (NEGATIVE) Urine Bilirubin (NEGATIVE) Urine Urobilinogen (0.2-1.0) E.U./dL Ur Leukocyte Esterase (NEGATIVE) U Hyaline Cast (Auto) /HPF Urine RBC Urine WBC /HPF Urine Bacteria /HPF SARS-CoV-2 RNA (BHARAT) Negative (NEGATIVE) Meds: Medications Generic Name Dose Route Start Last Admin Trade Name Freq PRN Reason Stop Dose Admin Sodium Chloride 1,000 mls @ 250 mls/hr 11/20/20 13:00 11/20/20 12:59 Normal Saline IV 250 mls/hr ASDIRECTED ZAHRAA Administration Departure - Departure Time of Disposition: 19:30 Disposition: Refer to Observation Condition: Poor, Serious, Critical Clinical Impression: Stroke - Discharge Information Sepsis Event Note (ED) - Focused Exam Vital Signs: Vital Signs Temp Pulse Resp BP Pulse Ox 11/20/20 18:31 86 16 188/85 H 100 11/20/20 18:00 194/78 H 11/20/20 16:08 82 20 153/80 H 98 11/20/20 15:41 97.7 F 90 16 164/96 H 98 11/20/20 15:23 84 170/80 H 98 11/20/20 14:53 85 18 168/78 H 99 11/20/20 13:23 97.7 F 90 18 155/72 H 99 11/20/20 12:24 97.7 F 80 18 155/72 H 98 - Problem List & Annotations (1) Stroke SNOMED Code(s): 058311526 Code(s): I63.9 - CEREBRAL INFARCTION, UNSPECIFIED Status: Acute Current Visit: Yes Onset Date: ~11/20/20 - My Orders Last 24 Hours: My Active Orders 11/20/20 12:38 EKG Documentation Completion [RC] ASDIRECTED 11/20/20 13:00 Sodium Chloride 0.9% [Normal Saline] 1,000 ml IV ASDIRECTED 11/20/20 13:20 CULTURE URINE [RM] Stat 11/20/20 18:29 Resuscitation Status Routine 11/20/20 18:30 Patient Status [ADT] Routine Oxygen Therapy [RC] PRN VTE/DVT Education [RC] Per Unit Routine Vital Signs [RC] Q4H 11/21/20 Breakfast NPO [Nothing Per Oral Diet] [DIET] - Assessment/Plan Last 24 Hours: My Active Orders 11/20/20 12:38 EKG Documentation Completion [RC] ASDIRECTED 11/20/20 13:00 Sodium Chloride 0.9% [Normal Saline] 1,000 ml IV ASDIRECTED 11/20/20 13:20 CULTURE URINE [RM] Stat 11/20/20 18:29 Resuscitation Status Routine 11/20/20 18:30 Patient Status [ADT] Routine Oxygen Therapy [RC] PRN VTE/DVT Education [RC] Per Unit Routine Vital Signs [RC] Q4H 11/21/20 Breakfast NPO [Nothing Per Oral Diet] [DIET]
--- NOTE | 2020-11-20 17:18 | CT ---
DATE OF SERVICE: 11/20/2020 CLINICAL DATA: Dizziness. UNENHANCED BRAIN CT: Comparison is made to a prior exam dated 11/13/2020. There is diffuse cerebral atrophy. There are periventricular lucencies bilaterally consistent with small vessel ischemic change. There are lucencies in the basal ganglia consistent with old lacunar infarcts. No masses or mass effect. No intracranial hemorrhage. No evidence of acute or subacute infarct. No fractures. IMPRESSION: No acute intracranial abnormalities. [id number] MTDD
[2020-11-20] MEDS ORDERED: cefTRIAXone 2 GM in Sodium Chloride 0.9% 100 ML IV ONE (21:53)
--- NOTE | 2020-11-20 21:59 | PCM.PN ---
- General Info Date of Service: 11/20/20 - Patient Data Vitals - Most Recent: Last Vital Signs Temp 36.0 C L 11/20/20 20:10 Pulse 83 11/20/20 20:10 Resp 20 11/20/20 20:10 BP 189/72 H 11/20/20 20:10 Pulse Ox 100 11/20/20 20:10 Lab Results Last 24 Hours: Laboratory Results - last 24 hr 11/20/20 11/20/20 11/20/20 Range/Units 12:36 12:36 12:36 WBC 9.3 D (4.0-11.0) K/uL RBC 3.91 L (4.50-6.50) M/uL Hgb 11.6 L (13.0-18.0) g/dL Hct 37.8 L (40.0-54.0) % MCV 97 H (76-96) fL MCH 29.7 (27.0-32.0) pg MCHC 30.7 L (31.0-35.0) g/dL RDW 13.7 (11.0-16.0) % Plt Count 249 (150-400) K/uL MPV 10.9 H (6.0-10.0) fL Neut % (Auto) 76.0 H (45.0-70.0) % Lymph % (Auto) 12.6 L (20.0-40.0) % [place] % (Auto) 6.4 (3.0-10.0) % Eos % (Auto) 3.6 (1.0-5.0) % Baso % (Auto) 1.4 H (0.0-0.5) % Neut # (Auto) 7.05 (2.00-7.50) K/uL Lymph # (Auto) 1.17 L (1.50-4.00) K/uL [place] # (Auto) 0.59 (0.20-0.80) K/uL Eos # (Auto) 0.33 (0.04-0.40) K/uL Baso # (Auto) 0.13 H (0.02-0.10) K/uL PT 10.6 (9.0-11.5) sec INR 1.0 (1.0-3.5) D-Dimer, Quantitative 714 H (0-400) ng/mL Sodium (136-145) mmol/L Potassium (3.5-5.1) mmol/L Chloride (98-107) mmol/L Carbon Dioxide (21.0-32.0) mmol/L Anion Gap (5.0-15.0) mmol/L BUN (8-26) mg/dL Creatinine (0.70-1.30) mg/dL Est Cr Clr Drug Dosing Estimated GFR (MDRD) (>60) MLS/MIN BUN/Creatinine Ratio (6-25) Glucose (74-100) mg/dL Calcium (8.5-10.1) mg/dL Magnesium (1.8-2.4) mg/dL Total Bilirubin (0.0-1.0) mg/dL AST (15-37) U/L ALT (12-78) U/L Alkaline Phosphatase (46-116) U/L Troponin I (0.000-0.060) ng/mL Total Protein (6.4-8.2) g/dL Albumin (3.4-5.0) g/dL Globulin (2.2-4.2) g/dL Albumin/Globulin Ratio (0.8-2.0) Urine Color Urine Appearance (CLEAR) Urine pH (5.0-8.0) Ur Specific [place] (1.003-1.030) Urine Protein (NEGATIVE) mg/dL Urine Glucose (UA) (NEGATIVE) mg/dL Urine Ketones (NEGATIVE) mg/dL Urine Occult Blood (NEGATIVE) Urine Nitrite (NEGATIVE) Urine Bilirubin (NEGATIVE) Urine Urobilinogen (0.2-1.0) E.U./dL Ur Leukocyte Esterase (NEGATIVE) U Hyaline Cast (Auto) /HPF Urine RBC Urine WBC /HPF Urine Bacteria /HPF SARS-CoV-2 RNA (BHARAT) (NEGATIVE) 11/20/20 11/20/20 11/20/20 Range/Units 12:36 13:20 13:20 WBC (4.0-11.0) K/uL RBC (4.50-6.50) M/uL Hgb (13.0-18.0) g/dL Hct (40.0-54.0) % MCV (76-96) fL MCH (27.0-32.0) pg MCHC (31.0-35.0) g/dL RDW (11.0-16.0) % Plt Count (150-400) K/uL MPV (6.0-10.0) fL Neut % (Auto) (45.0-70.0) % Lymph % (Auto) (20.0-40.0) % [place] % (Auto) (3.0-10.0) % Eos % (Auto) (1.0-5.0) % Baso % (Auto) (0.0-0.5) % Neut # (Auto) (2.00-7.50) K/uL Lymph # (Auto) (1.50-4.00) K/uL [place] # (Auto) (0.20-0.80) K/uL Eos # (Auto) (0.04-0.40) K/uL Baso # (Auto) (0.02-0.10) K/uL PT (9.0-11.5) sec INR (1.0-3.5) D-Dimer, Quantitative (0-400) ng/mL Sodium 146 H (136-145) mmol/L Potassium 4.2 (3.5-5.1) mmol/L Chloride 105 (98-107) mmol/L Carbon Dioxide 39.4 H (21.0-32.0) mmol/L Anion Gap 5.8 (5.0-15.0) mmol/L BUN 52 H* D (8-26) mg/dL Creatinine 2.52 H (0.70-1.30) mg/dL Est Cr Clr Drug Dosing TNP Estimated GFR (MDRD) 25 L (>60) MLS/MIN BUN/Creatinine Ratio 20.6 (6-25) Glucose 260 H (74-100) mg/dL Calcium 9.8 (8.5-10.1) mg/dL Magnesium 2.3 (1.8-2.4) mg/dL Total Bilirubin 0.3 (0.0-1.0) mg/dL AST 14 L (15-37) U/L ALT 22 (12-78) U/L Alkaline Phosphatase 80 (46-116) U/L Troponin I 0.029 D (0.000-0.060) ng/mL Total Protein 7.0 (6.4-8.2) g/dL Albumin 3.2 L (3.4-5.0) g/dL Globulin 3.8 (2.2-4.2) g/dL Albumin/Globulin Ratio 0.8 (0.8-2.0) Urine Color Yellow Urine Appearance Clear (CLEAR) Urine pH 6.5 (5.0-8.0) Ur Specific [place] 1.020 (1.003-1.030) Urine Protein Negative (NEGATIVE) mg/dL Urine Glucose (UA) Negative (NEGATIVE) mg/dL Urine Ketones Negative (NEGATIVE) mg/dL Urine Occult Blood Negative (NEGATIVE) Urine Nitrite Negative (NEGATIVE) Urine Bilirubin Negative (NEGATIVE) Urine Urobilinogen 0.2 (0.2-1.0) E.U./dL Ur Leukocyte Esterase Trace H (NEGATIVE) U Hyaline Cast (Auto) Moderate /HPF Urine RBC Not Reportable Urine WBC 0-5 H /HPF Urine Bacteria Few /HPF SARS-CoV-2 RNA (BHARAT) (NEGATIVE) 11/20/20 Range/Units 15:48 WBC (4.0-11.0) K/uL RBC (4.50-6.50) M/uL Hgb (13.0-18.0) g/dL Hct (40.0-54.0) % MCV (76-96) fL MCH (27.0-32.0) pg MCHC (31.0-35.0) g/dL RDW (11.0-16.0) % Plt Count (150-400) K/uL MPV (6.0-10.0) fL Neut % (Auto) (45.0-70.0) % Lymph % (Auto) (20.0-40.0) % [place] % (Auto) (3.0-10.0) % Eos % (Auto) (1.0-5.0) % Baso % (Auto) (0.0-0.5) % Neut # (Auto) (2.00-7.50) K/uL Lymph # (Auto) (1.50-4.00) K/uL [place] # (Auto) (0.20-0.80) K/uL Eos # (Auto) (0.04-0.40) K/uL Baso # (Auto) (0.02-0.10) K/uL PT (9.0-11.5) sec INR (1.0-3.5) D-Dimer, Quantitative (0-400) ng/mL Sodium (136-145) mmol/L Potassium (3.5-5.1) mmol/L Chloride (98-107) mmol/L Carbon Dioxide (21.0-32.0) mmol/L Anion Gap (5.0-15.0) mmol/L BUN (8-26) mg/dL Creatinine (0.70-1.30) mg/dL Est Cr Clr Drug Dosing Estimated GFR (MDRD) (>60) MLS/MIN BUN/Creatinine Ratio (6-25) Glucose (74-100) mg/dL Calcium (8.5-10.1) mg/dL Magnesium (1.8-2.4) mg/dL Total Bilirubin (0.0-1.0) mg/dL AST (15-37) U/L ALT (12-78) U/L Alkaline Phosphatase (46-116) U/L Troponin I (0.000-0.060) ng/mL Total Protein (6.4-8.2) g/dL Albumin (3.4-5.0) g/dL Globulin (2.2-4.2) g/dL Albumin/Globulin Ratio (0.8-2.0) Urine Color Urine Appearance (CLEAR) Urine pH (5.0-8.0) Ur Specific [place] (1.003-1.030) Urine Protein (NEGATIVE) mg/dL Urine Glucose (UA) (NEGATIVE) mg/dL Urine Ketones (NEGATIVE) mg/dL Urine Occult Blood (NEGATIVE) Urine Nitrite (NEGATIVE) Urine Bilirubin (NEGATIVE) Urine Urobilinogen (0.2-1.0) E.U./dL Ur Leukocyte Esterase (NEGATIVE) U Hyaline Cast (Auto) /HPF Urine RBC Urine WBC /HPF Urine Bacteria /HPF SARS-CoV-2 RNA (BHARAT) Negative (NEGATIVE) Med Orders - Current: Current Medications Sodium Chloride (Normal Saline) 1,000 mls @ 75 mls/hr IV ASDIRECTED [facility] Ceftriaxone Sodium 2 gm/ (Sodium Chloride) 100 mls @ 100 mls/hr IV ONETIME ONE Stop: 11/20/20 22:52 Discontinued Medications Sodium Chloride (Normal Saline) 1,000 mls @ 250 mls/hr IV ASDIRECTED [facility] Last Admin: 11/20/20 12:59 Dose: 250 mls/hr Documented by: Sepsis Event Note - Evaluation Sepsis Screening Result: No Definite Risk - Focused Exam Vital Signs: Vital Signs Temp Pulse Resp BP Pulse Ox Pulse Ox 11/20/20 20:10 36.0 C L 83 20 189/72 H 100 11/20/20 18:31 86 16 188/85 H 100 11/20/20 18:30 36.0 C L 83 18 189/72 H 100 100 11/20/20 18:00 194/78 H 11/20/20 16:08 82 20 153/80 H 98 11/20/20 15:41 36.5 C 90 16 164/96 H 98 11/20/20 15:23 84 170/80 H 98 11/20/20 14:53 85 18 168/78 H 99 11/20/20 13:23 36.5 C 90 18 155/72 H 99 11/20/20 12:24 36.5 C 80 18 155/72 H 98 - Problem List & Annotations (1) Left-sided weakness SNOMED Code(s): 422893749 Code(s): R53.1 - WEAKNESS Status: Acute Current Visit: Yes - Problem List Review Problem List Initiated/Reviewed/Updated: Yes - My Orders Last 24 Hours: My Active Orders 11/20/20 21:53 [email or web address] [Rocephin] 2 gm Sodium Chloride 0.9% [Normal Saline] 100 ml IV ONETIME 11/20/20 22:00 Sodium Chloride 0.9% @ 75 MLS/HR(1000ml) Sodium Chloride 0.9% [Normal Saline] 1,000 ml IV ASDIRECTED - Assessment Assessment:: Sohail Yeboah [facility] CONSULTATION NOTE: eHospitalist was contacted by ANA Mullen with request of consultation for admit support: Reason for consult: Left-sided weakness HPI: Patient is a 75-year-old male with pmh of HTN, DM, TIAs who was brought to the ED from his alf facility for altered mental status. Patient is somnolent, difficult to arouse and is unable to provide any history. No family at bedside to provide history. History is obtained from ED nurse practitioner who reports that patient has had multiple TIAs, most recent one last week. He was noted to be more slow to respond and was brought into the ED for evaluation. He was noted to have left-sided weakness in the ED. CT head was negative for acute changes. Family was contacted regarding consideration for stroke work-up, transferring to higher level of care. Per ED provider, family wanted to keep patient locally, admit him overnight and monitor him. They wanted to avoid further imaging. They would like to continue aggressive care without any escalation of care. Home Medications: Have not restarted Pertinent Medical History: See HPI Pertinent Social History: Unable to obtain Exam (performed via interactive video with assistance of bedside nurse): General: Elderly male, somnolent, not arousable to sternal rub or painful stimuli HEENT: Pupils minimally reactive mucous membranes dry Lungs: Clear to auscultation bilaterally CV: Regular rate and rhythm without murmurs rubs or gallops Abd: Nondistended Skin: No rashes or bruises appreciated on gross visualization of exposed skin Neuro: Somnolent, not arousable to sternal rub, does not withdraw to painful stimuli applied by bedside nurse Labs, vitals, imaging reports reviewed. -WBC 9.3, hemoglobin 11.6, platelet count normal. -D-dimer 714 (reference range less than 400), sodium 146, potassium 4.2, bicarb 39, BUN 52, creatinine 2.5 -UA with 0-5 WBCs, no RBCs, trace leukocyte esterase, negative nitrites. Few bacteria. -CT head with no acute intracranial abnormalities. Assessment and Plan: Patient is a 75-year-old male with pmh of HTN, DM, TIAs who was brought into the ED from alf facility for altered mental status, found to have left- sided weakness. Patient is somnolent, difficult to arouse and is unable to provide any history. No family at bedside to corroborate history. #Acute left-sided weakness #Acute encephalopathy #History of recurrent TIAs #HTN #Diabetes Baseline mentation unclear. Unclear what his baseline creatinine is as well. Left-sided weakness, somnolence concerning for possible new acute ischemic stroke. Family requested no further imaging or work-up for stroke. Currently maintaining his airway. Per report he is DNR and DNI per family's request. -His UA is not grossly positive for UTI but could treat for 1 if he has symptoms. Given his acute encephalopathy, I will start him on Rocephin IV 2 g 1 dose. -Follow-up urine culture and consider treating for 3 to 5 days. -Hold off on stroke work-up or further imaging. -N.p.o. status, no p.o. pills. -Appears dry on exam, will give gentle IV fluids-NS at 75 cc an hour. -DNR/DNI -SCDs for DVT prophylaxis Thank you for including Sohail Gruber in the patients care. This service is available for further assistance as requested by your care team by calling [phone].
--- NOTE | 2020-11-21 13:07 | PCM.PN ---
- General Info Date of Service: 11/21/20 Functional Status: Reports: Other - Review of Systems General: Reports: Weakness (left side of body ) Pulmonary: Reports: Shortness of Breath, Cough, Sputum, Other (laboured breathing ) Cardiovascular: Reports: No Symptoms Gastrointestinal: Reports: Other (unable to swallow ) Musculoskeletal: Reports: Other (weak on left side ) Neurological: Reports: Confusion (patient respond only to painful stimuli - decresed movement on left side ), Other Psychiatric: Reports: Confusion - Patient Data Vitals - Most Recent: Last Vital Signs Temp 96.1 F L 11/21/20 08:00 Pulse 67 11/21/20 08:00 Resp 16 11/21/20 08:00 BP 158/62 H 11/21/20 08:00 Pulse Ox 99 11/21/20 08:00 Weight - Most Recent: 258 lb 6.4 oz Lab Results Last 24 Hours: Laboratory Results - last 24 hr 11/20/20 11/20/20 11/20/20 Range/Units 12:36 12:36 12:36 WBC 9.3 D (4.0-11.0) K/uL RBC 3.91 L (4.50-6.50) M/uL Hgb 11.6 L (13.0-18.0) g/dL Hct 37.8 L (40.0-54.0) % MCV 97 H (76-96) fL MCH 29.7 (27.0-32.0) pg MCHC 30.7 L (31.0-35.0) g/dL RDW 13.7 (11.0-16.0) % Plt Count 249 (150-400) K/uL MPV 10.9 H (6.0-10.0) fL Neut % (Auto) 76.0 H (45.0-70.0) % Lymph % (Auto) 12.6 L (20.0-40.0) % [place] % (Auto) 6.4 (3.0-10.0) % Eos % (Auto) 3.6 (1.0-5.0) % Baso % (Auto) 1.4 H (0.0-0.5) % Neut # (Auto) 7.05 (2.00-7.50) K/uL Lymph # (Auto) 1.17 L (1.50-4.00) K/uL [place] # (Auto) 0.59 (0.20-0.80) K/uL Eos # (Auto) 0.33 (0.04-0.40) K/uL Baso # (Auto) 0.13 H (0.02-0.10) K/uL PT 10.6 (9.0-11.5) sec INR 1.0 (1.0-3.5) D-Dimer, Quantitative 714 H (0-400) ng/mL Sodium (136-145) mmol/L Potassium (3.5-5.1) mmol/L Chloride (98-107) mmol/L Carbon Dioxide (21.0-32.0) mmol/L Anion Gap (5.0-15.0) mmol/L BUN (8-26) mg/dL Creatinine (0.70-1.30) mg/dL Est Cr Clr Drug Dosing Estimated GFR (MDRD) (>60) MLS/MIN BUN/Creatinine Ratio (6-25) Glucose (74-100) mg/dL Calcium (8.5-10.1) mg/dL Magnesium (1.8-2.4) mg/dL Total Bilirubin (0.0-1.0) mg/dL AST (15-37) U/L ALT (12-78) U/L Alkaline Phosphatase (46-116) U/L Troponin I (0.000-0.060) ng/mL Total Protein (6.4-8.2) g/dL Albumin (3.4-5.0) g/dL Globulin (2.2-4.2) g/dL Albumin/Globulin Ratio (0.8-2.0) Urine Color Urine Appearance (CLEAR) Urine pH (5.0-8.0) Ur Specific [place] (1.003-1.030) Urine Protein (NEGATIVE) mg/dL Urine Glucose (UA) (NEGATIVE) mg/dL Urine Ketones (NEGATIVE) mg/dL Urine Occult Blood (NEGATIVE) Urine Nitrite (NEGATIVE) Urine Bilirubin (NEGATIVE) Urine Urobilinogen (0.2-1.0) E.U./dL Ur Leukocyte Esterase (NEGATIVE) U Hyaline Cast (Auto) /HPF Urine RBC Urine WBC /HPF Urine Bacteria /HPF SARS-CoV-2 RNA (BHARAT) (NEGATIVE) 11/20/20 11/20/20 11/20/20 Range/Units 12:36 13:20 13:20 WBC (4.0-11.0) K/uL RBC (4.50-6.50) M/uL Hgb (13.0-18.0) g/dL Hct (40.0-54.0) % MCV (76-96) fL MCH (27.0-32.0) pg MCHC (31.0-35.0) g/dL RDW (11.0-16.0) % Plt Count (150-400) K/uL MPV (6.0-10.0) fL Neut % (Auto) (45.0-70.0) % Lymph % (Auto) (20.0-40.0) % [place] % (Auto) (3.0-10.0) % Eos % (Auto) (1.0-5.0) % Baso % (Auto) (0.0-0.5) % Neut # (Auto) (2.00-7.50) K/uL Lymph # (Auto) (1.50-4.00) K/uL [place] # (Auto) (0.20-0.80) K/uL Eos # (Auto) (0.04-0.40) K/uL Baso # (Auto) (0.02-0.10) K/uL PT (9.0-11.5) sec INR (1.0-3.5) D-Dimer, Quantitative (0-400) ng/mL Sodium 146 H (136-145) mmol/L Potassium 4.2 (3.5-5.1) mmol/L Chloride 105 (98-107) mmol/L Carbon Dioxide 39.4 H (21.0-32.0) mmol/L Anion Gap 5.8 (5.0-15.0) mmol/L BUN 52 H* D (8-26) mg/dL Creatinine 2.52 H (0.70-1.30) mg/dL Est Cr Clr Drug Dosing TNP Estimated GFR (MDRD) 25 L (>60) MLS/MIN BUN/Creatinine Ratio 20.6 (6-25) Glucose 260 H (74-100) mg/dL Calcium 9.8 (8.5-10.1) mg/dL Magnesium 2.3 (1.8-2.4) mg/dL Total Bilirubin 0.3 (0.0-1.0) mg/dL AST 14 L (15-37) U/L ALT 22 (12-78) U/L Alkaline Phosphatase 80 (46-116) U/L Troponin I 0.029 D (0.000-0.060) ng/mL Total Protein 7.0 (6.4-8.2) g/dL Albumin 3.2 L (3.4-5.0) g/dL Globulin 3.8 (2.2-4.2) g/dL Albumin/Globulin Ratio 0.8 (0.8-2.0) Urine Color Yellow Urine Appearance Clear (CLEAR) Urine pH 6.5 (5.0-8.0) Ur Specific [place] 1.020 (1.003-1.030) Urine Protein Negative (NEGATIVE) mg/dL Urine Glucose (UA) Negative (NEGATIVE) mg/dL Urine Ketones Negative (NEGATIVE) mg/dL Urine Occult Blood Negative (NEGATIVE) Urine Nitrite Negative (NEGATIVE) Urine Bilirubin Negative (NEGATIVE) Urine Urobilinogen 0.2 (0.2-1.0) E.U./dL Ur Leukocyte Esterase Trace H (NEGATIVE) U Hyaline Cast (Auto) Moderate /HPF Urine RBC Not Reportable Urine WBC 0-5 H /HPF Urine Bacteria Few /HPF SARS-CoV-2 RNA (BHARAT) (NEGATIVE) 11/20/20 11/21/20 Range/Units 15:48 11:05 WBC (4.0-11.0) K/uL RBC (4.50-6.50) M/uL Hgb (13.0-18.0) g/dL Hct (40.0-54.0) % MCV (76-96) fL MCH (27.0-32.0) pg MCHC (31.0-35.0) g/dL RDW (11.0-16.0) % Plt Count (150-400) K/uL MPV (6.0-10.0) fL Neut % (Auto) (45.0-70.0) % Lymph % (Auto) (20.0-40.0) % [place] % (Auto) (3.0-10.0) % Eos % (Auto) (1.0-5.0) % Baso % (Auto) (0.0-0.5) % Neut # (Auto) (2.00-7.50) K/uL Lymph # (Auto) (1.50-4.00) K/uL [place] # (Auto) (0.20-0.80) K/uL Eos # (Auto) (0.04-0.40) K/uL Baso # (Auto) (0.02-0.10) K/uL PT (9.0-11.5) sec INR (1.0-3.5) D-Dimer, Quantitative (0-400) ng/mL Sodium 148 H (136-145) mmol/L Potassium 3.9 (3.5-5.1) mmol/L Chloride 108 H (98-107) mmol/L Carbon Dioxide 36.4 H (21.0-32.0) mmol/L Anion Gap 7.5 (5.0-15.0) mmol/L BUN 41 H D (8-26) mg/dL Creatinine 1.71 H D (0.70-1.30) mg/dL Est Cr Clr Drug Dosing 39.73 Estimated GFR (MDRD) 39 L (>60) MLS/MIN BUN/Creatinine Ratio 24.0 (6-25) Glucose 204 H (74-100) mg/dL Calcium 8.9 (8.5-10.1) mg/dL Magnesium (1.8-2.4) mg/dL Total Bilirubin 0.3 (0.0-1.0) mg/dL AST 16 (15-37) U/L ALT 18 (12-78) U/L Alkaline Phosphatase 80 (46-116) U/L Troponin I (0.000-0.060) ng/mL Total Protein 6.7 (6.4-8.2) g/dL Albumin 3.0 L (3.4-5.0) g/dL Globulin 3.7 (2.2-4.2) g/dL Albumin/Globulin Ratio 0.8 (0.8-2.0) Urine Color Urine Appearance (CLEAR) Urine pH (5.0-8.0) Ur Specific [place] (1.003-1.030) Urine Protein (NEGATIVE) mg/dL Urine Glucose (UA) (NEGATIVE) mg/dL Urine Ketones (NEGATIVE) mg/dL Urine Occult Blood (NEGATIVE) Urine Nitrite (NEGATIVE) Urine Bilirubin (NEGATIVE) Urine Urobilinogen (0.2-1.0) E.U./dL Ur Leukocyte Esterase (NEGATIVE) U Hyaline Cast (Auto) /HPF Urine RBC Urine WBC /HPF Urine Bacteria /HPF SARS-CoV-2 RNA (BHARAT) Negative (NEGATIVE) Med Orders - Current: Current Medications Aspirin (Aspirin) 300 mg RECTAL DAILY [facility] Sodium Chloride (Normal Saline) 1,000 mls @ 75 mls/hr IV ASDIRECTED [facility] Last Admin: 11/20/20 22:00 Dose: 75 mls/hr Documented by: Discontinued Medications Sodium Chloride (Normal Saline) 1,000 mls @ 250 mls/hr IV ASDIRECTED [facility] Last Admin: 11/20/20 12:59 Dose: 250 mls/hr Documented by: Ceftriaxone Sodium 2 gm/ (Sodium Chloride) 100 mls @ 100 mls/hr IV ONETIME ONE Stop: 11/20/20 22:52 Last Admin: 11/20/20 22:34 Dose: 100 mls/hr Documented by: - Exam General: Moderate Distress, Obtunded HEENT: Pupils Equal, Pupils Reactive Lungs: No: Crackles Cardiovascular: Regular Rate, Regular Rhythm GI/Abdominal Exam: Normal Bowel Sounds, Soft, Non-Tender Extremities: Other (weakness of left side of body but moving on left side ) Psy/Mental Status: Other (response to painful stimuli ) Physical Findings Comments:: patient is only responding to painful stimuli -weakness of left side body The patient is now moving his all four limbs slowly response to painful stimuli Sepsis Event Note - Evaluation Sepsis Screening Result: No Definite Risk - Focused Exam Vital Signs: Vital Signs Temp Temp Pulse Resp BP Pulse Ox 11/21/20 08:00 96.1 F L 67 16 158/62 H 99 11/21/20 06:00 96.4 F L 83 18 140/63 100 11/21/20 02:00 96.8 F L 82 18 148/66 H - Problem List & Annotations (1) Stroke SNOMED Code(s): 240613920 Code(s): I63.9 - CEREBRAL INFARCTION, UNSPECIFIED Status: Acute Current Visit: Yes Onset Date: ~11/20/20 - Problem List Review Problem List Initiated/Reviewed/Updated: Yes - My Orders Last 24 Hours: My Active Orders 11/20/20 12:30 Insert Urinary Catheter [OM.PC] Stat Urinary Catheter Assessment [RC] ASDIRECTED 11/20/20 12:38 EKG Documentation Completion [RC] ASDIRECTED 11/20/20 13:20 CULTURE URINE [RM] Stat 11/20/20 18:29 Resuscitation Status Routine 11/20/20 18:30 Patient Status [ADT] Routine Oxygen Therapy [RC] PRN VTE/DVT Education [RC] Per Unit Routine Vital Signs [RC] Q4H 11/21/20 Breakfast NPO [Nothing Per Oral Diet] [DIET] 11/21/20 10:39 CULTURE MRSA SURVEY [RM] Routine - Assessment Assessment:: Sohail Yeboah Hospitalist CONSULTATION NOTE: eHospitalist was contacted by ANA Mullen with request of consultation for admit support: Reason for consult: Left-sided weakness HPI: Patient is a 75-year-old male with pmh of HTN, DM, TIAs who was brought to the ED from his shelter facility for altered mental status. Patient is somnolent, difficult to arouse and is unable to provide any history. No family at bedside to provide history. History is obtained from ED nurse practitioner who reports that patient has had multiple TIAs, most recent one last week. He was noted to be more slow to respond and was brought into the ED for evaluation. He was noted to have left-sided weakness in the ED. CT head was negative for acute changes. Family was contacted regarding consideration for stroke work-up, transferring to higher level of care. Per ED provider, family wanted to keep patient locally, admit him overnight and monitor him. They wanted to avoid further imaging. They would like to continue aggressive care without any escalation of care. Home Medications: Have not restarted Pertinent Medical History: See HPI Pertinent Social History: Unable to obtain Exam (performed via interactive video with assistance of bedside nurse): General: Elderly male, somnolent, not arousable to sternal rub or painful stimuli HEENT: Pupils minimally reactive mucous membranes dry Lungs: Clear to auscultation bilaterally CV: Regular rate and rhythm without murmurs rubs or gallops Abd: Nondistended Skin: No rashes or bruises appreciated on gross visualization of exposed skin Neuro: Somnolent, not arousable to sternal rub, does not withdraw to painful stimuli applied by bedside nurse Labs, vitals, imaging reports reviewed. -WBC 9.3, hemoglobin 11.6, platelet count normal. -D-dimer 714 (reference range less than 400), sodium 146, potassium 4.2, bicarb 39, BUN 52, creatinine 2.5 -UA with 0-5 WBCs, no RBCs, trace leukocyte esterase, negative nitrites. Few bacteria. -CT head with no acute intracranial abnormalities. Assessment and Plan: Patient is a 75-year-old male with pmh of HTN, DM, TIAs who was brought into the ED from shelter facility for altered mental status, found to have left- sided weakness. Patient is somnolent, difficult to arouse and is unable to pro vide any history. No family at bedside to corroborate history. #Acute left-sided weakness #Acute encephalopathy #History of recurrent TIAs #HTN #Diabetes Baseline mentation unclear. Unclear what his baseline creatinine is as well. Left-sided weakness, somnolence concerning for possible new acute ischemic stroke. Family requested no further imaging or work-up for stroke. Currently maintaining his airway. Per report he is DNR and DNI per family's request. -His UA is not grossly positive for UTI but could treat for 1 if he has symptoms. Given his acute encephalopathy, I will start him on Rocephin IV 2 g 1 dose. -Follow-up urine culture and consider treating for 3 to 5 days. -Hold off on stroke work-up or further imaging. -N.p.o. status, no p.o. pills. -Appears dry on exam, will give gentle IV fluids-NS at 75 cc an hour. -DNR/DNI -SCDs for DVT prophylaxis Thank you for including Sohail Gruber in the patients care. This service is available for further assistance as requested by your care team by calling [phone].
[2020-11-21] MEDS: Aspirin 300 MG Supp RECTAL SCH (15:56)
[2020-11-21] MEDS: Acetaminophen 650 MG Supp RECTAL PRN (21:19)
[2020-11-22] MEDS: Acetaminophen 650 MG Supp RECTAL PRN (06:03)
[2020-11-22] MEDS: Aspirin 300 MG Supp RECTAL SCH (08:30)
[2020-11-22 14:29] VITALS: BP 176/79; PULSE 87
--- NOTE | 2020-11-22 15:23 | PCM.DCSUM1 ---
Discharge Summary - Hospital Course Free Text/Narrative:: 75 year old male came to ED with c/o unresponsive - He is known patient of DM ,HTN & TIA came with deterioration of conscious level -On examination he had decreased movement of left side of body. family denies to go higher level of care ,pt was admitted for observation -home medication hold .I/v fluid started to correct renal function .E hospitalist saw the patient & put some orders - The patient is feeling better & transfer to residential , f/u with PCP Diagnosis: Stroke: Yes Modified Walker Scale: Mod.Sev.Disability ;Unable to Walk/Attend Bodily Needs W/O Assistance Modified Ene Scale Score: 4 - Discharge Data Discharge Date: 11/22/20 Discharge Disposition: DC/Tfer to [facility] Condition: Stable - Referral to Home Health Primary Care Physician: PCP None - Discharge Diagnosis/Problem(s) (1) Stroke SNOMED Code(s): 182531827 ICD Code: I63.9 - CEREBRAL INFARCTION, UNSPECIFIED Status: Acute Priority: Medium Onset Date: ~11/20/20 - Patient Instructions Diet: Usual Diet as Tolerated Activity: Bedrest - Discharge Plan *PRESCRIPTION DRUG MONITORING PROGRAM REVIEWED*: No *COPY OF PRESCRIPTION DRUG MONITORING REPORT IN PATIENT EMERSON: No Home Medications: Home Meds Insulin Aspart [NovoLOG] 20 units SQ TID 12/03/14 [History] Simvastatin 20 mg PO QPM 12/03/14 [History] risperiDONE [RisperiDAL] 1 mg PO BID 12/03/14 [History] FLUoxetine HCl [Fluoxetine HCl] 50 mg PO DAILY 12/04/14 [History] Multivitamin [Multi-Vitamin Daily] 1 tab PO DAILY 12/04/14 [History] Calcium Carbonate [Calcium] 600 mg PO BID 08/18/18 [History] Liraglutide [Victoza 3-Addy] 0.6 mg SUBCUT DAILY 08/18/18 [History] Acetaminophen [Tylenol] 650 mg PO TID 11/20/20 [History] Calcitonin,[place],Synthetic [Calcitonin-[place]] 1 spray INH DAILY 11/20/20 [History] Ciprofloxacin HCl [Cipro] 500 mg PO BID 11/20/20 [History] Famotidine 20 mg PO BID 11/20/20 [History] Furosemide [Lasix] 40 mg PO BID 11/20/20 [History] Gabapentin [Neurontin] 100 mg PO BID 11/20/20 [History] Insulin Detemir [Levemir Flextouch] 40 unit SQ BEDTIME 11/20/20 [History] Loperamide HCl [Imodium A-D] 2 mg PO Q1H 11/20/20 [History] Losartan Potassium [Cozaar] 75 mg PO DAILY 11/20/20 [History] Magnesium Hydroxide [Milk of Magnesia] 30 ml PO BID PRN 11/20/20 [History] Melatonin 6 mg PO BEDTIME 11/20/20 [History] Meloxicam 7.5 mg PO BID 11/20/20 [History] Menthol [Biofreeze] 1 applic TOP BID 11/20/20 [History] Potassium Chloride [Klor-Con 10] 10 meq PO DAILY 11/20/20 [History] hydrOXYzine HCL [Hydroxyzine HCl] 25 mg PO TID 11/20/20 [History] hydroCHLOROthiazide [Hydrochlorothiazide] 25 mg PO DAILY 11/20/20 [History] traZODone HCl [Trazodone HCl] 50 mg PO DAILY 11/20/20 [History] Patient Handouts: Transient Ischemic Attack Forms: ED Department Discharge Referrals: PCP,None [Primary Care Provider] - - Discharge Summary/Plan Comment DC Time >30 min.: Yes - Patient Data Vitals - Most Recent: Last Vital Signs Temp 98.2 F 11/22/20 13:20 Pulse 87 11/22/20 13:20 Resp 18 11/22/20 13:20 BP 176/79 H 11/22/20 13:20 Pulse Ox 100 11/22/20 13:20 Weight - Most Recent: 258 lb Lab Results - Last 24 hrs: Laboratory Results - last 24 hr 11/21/20 11/22/20 11/22/20 Range/Units 20:04 01:48 06:44 Sodium (136-145) mmol/L Potassium (3.5-5.1) mmol/L Chloride (98-107) mmol/L Carbon Dioxide (21.0-32.0) mmol/L Anion Gap (5.0-15.0) mmol/L BUN (8-26) mg/dL Creatinine (0.70-1.30) mg/dL Est Cr Clr Drug Dosing mL/min Estimated GFR (MDRD) (>60) MLS/MIN BUN/Creatinine Ratio (6-25) Glucose (74-100) mg/dL POC Glucose 218 H 209 H 237 H (74-110) mg/dL Calcium (8.5-10.1) mg/dL 11/22/20 Range/Units 07:00 Sodium 147 H (136-145) mmol/L Potassium 3.5 (3.5-5.1) mmol/L Chloride 108 H (98-107) mmol/L Carbon Dioxide 33.5 H (21.0-32.0) mmol/L Anion Gap 9.0 (5.0-15.0) mmol/L BUN 31 H D (8-26) mg/dL Creatinine 1.42 H (0.70-1.30) mg/dL Est Cr Clr Drug Dosing 47.84 mL/min Estimated GFR (MDRD) 49 L (>60) MLS/MIN BUN/Creatinine Ratio 21.8 (6-25) Glucose 223 H (74-100) mg/dL POC Glucose (74-110) mg/dL Calcium 8.5 (8.5-10.1) mg/dL Med Orders - Current: Current Medications Discontinued Medications Acetaminophen (Tylenol) 650 mg RECTAL Q6H PRN PRN Reason: Pain Last Admin: 11/22/20 06:03 Dose: 650 mg Documented by: Aspirin (Aspirin) 300 mg RECTAL DAILY [facility] Last Admin: 11/22/20 08:30 Dose: 300 mg Documented by: Sodium Chloride (Normal Saline) 1,000 mls @ 250 mls/hr IV ASDIRECTED [facility] Last Admin: 11/20/20 12:59 Dose: 250 mls/hr Documented by: Sodium Chloride (Normal Saline) 1,000 mls @ 75 mls/hr IV ASDIRECTED [facility] Stop: 11/21/20 19:35 Last Infusion: 11/21/20 15:51 Dose: Infused Documented by: Ceftriaxone Sodium 2 gm/ (Sodium Chloride) 100 mls @ 100 mls/hr IV ONETIME ONE Stop: 11/20/20 22:52 Last Admin: 11/20/20 22:34 Dose: 100 mls/hr Documented by:
== END 2020-11-22 13:35 ==
LOC: LB.ED 12:19 → LB.MS 18:29 → UNDOADMOB 19:58 → LB.MS 19:58
PROVIDERS: ADMIT Physician Assistant; ATTEND Physician Assistant
DX: I63.9 Cerebral infarction, unspecified (principal); G93.40 Encephalopathy, unspecified; G81.94 Hemiplegia, unspecified affecting left nondominant side; E11.9 Type 2 diabetes mellitus without complications; E78.00 Pure hypercholesterolemia, unspecified; I10 Essential (primary) hypertension; Z79.899 Other long term (current) drug therapy; Z79.4 Long term (current) use of insulin; Z20.822 Contact with and (suspected) exposure to COVID-19
CPT/HCPCS: 36415; 70450; 80048; 80053; 81001; 82962; 83735; 84484; 85025; 85379; 85610; 87086; 93005; 99222; 99232; 99239; A9270-GY; J0696; J7030; U0002

== ENCOUNTER 2021-05-06 12:26 | Observation (INO) | payer MEDICARE, MEDICAID ==
[2021-05-06] MEDS ORDERED: Norepinephrine 8 MG in Dextrose 5% in Water 250 ML IV SCH ×2 (13:15)
[2021-05-06] MEDS ORDERED: Morphine 2 MG/ML SYRINGE IVPUSH ONE (13:36)
[2021-05-06] MEDS ORDERED: Morphine 4 MG/ML VIAL ONE (13:48)
--- NOTE | 2021-05-06 14:04 | CR ---
DATE OF SERVICE: 05/06/21 CLINICAL DATA: LOC AP CHEST: Comparison is made to a prior exam dated 09/14/19. The patient has taken a poor inspiration. The heart remains enlarged. The aorta is calcified and ectatic. The pulmonary vascular congestion on the prior exam does appear slightly improved. The lungs are clear. No pneumothorax. No pleural effusions. No areas of consolidation. No other significant findings. [id number] [facility]
--- NOTE | 2021-05-06 15:44 | CT ---
DATE OF SERVICE: 05/06/2021 CLINICAL DATA: LOC Unenhanced brain CT: Multislice acquisition through the brain without IV contrast was performed. The comparison is made to a prior exam dated 20 November 2020. The there is diffuse atrophy. There are extensive periventricular lucencies bilaterally consistent with small vessel ischemic change, right greater than left. There are lucencies in the basal ganglia consistent with old lacunar infarcts. No masses. No intracranial hemorrhage. No evidence of acute or subacute infarct. No osseous abnormalities. Impression: No acute intracranial abnormalities. Thank you for allowing us to participate in the care of your patient. PHYLLIS
--- NOTE | 2021-05-06 15:52 | CT ---
DATE OF SERVICE: 05/06/2021 CLINICAL DATA: LOC Unenhanced chest CT: Multislice acquisition through the chest without IV contrast was performed. No priors. Breathing motion artifact degrades study quality. There are subtle ground-glass opacities in both lungs. The possibility of viral pneumonia should be considered. No areas of consolidation. The lungs are otherwise clear. No pleural effusion. No pneumothorax. The heart size is normal. There are severe coronary artery calcifications. There are calcifications in the region of the mitral and aortic valves. No significant pericardial effusion. No aortic aneurysm. No hilar or mediastinal adenopathy. There is degenerative disc disease throughout the thoracic spine. There is compression deformity of the superior endplates of T8 and T11, age indeterminate. There is also compression deformity of the inferior endplate of L1, age indeterminate. No focal lytic or blastic bone lesions. No other significant findings. Unenhanced abdomen and pelvic CT: Multislice acquisition through the abdomen and pelvis without IV or oral contrast was performed. Comparison is made to a prior exam dated 28 December 2018. Motion artifact degrades image quality. The the liver is normal size. There is mild fatty infiltration of the liver. No focal hepatic lesions. The patient is status post cholecystectomy and there are surgical clips in the gallbladder fossa. The spleen appears normal. Pancreas is atrophic. No dilated pancreatic duct. There is mild soft tissue fullness of both adrenal glands suggesting adrenal hyperplasia. There is a 15 mm low-density lesion within the left adrenal . It is most likely benign. There is mild atrophy of both kidneys. There is a 2.3 cm low-density lesion in the interpolar region of the right kidney. It measures 17 mm on the prior exam. It most likely represents a cyst, however, a dedicated renal CT with contrast enhancement is recommended to further evaluate it. No nephrocalcinosis or nephrolithiasis. No hydronephrosis or hydroureter. There is a small amount of fluid within the bladder. There is a small bladder diverticulum protruding from the anterior bladder, unchanged from the prior study. There is mild diffuse bladder wall thickening. This is probably related to nondistention. Cystitis should be considered. No evidence of appendicitis. There is mild diverticulosis of the descending and sigmoid colon. There is very subtle pericolonic fat stranding adjacent to the proximal sigmoid colon suggesting the possibility mild or early diverticulitis. No evidence of diverticular abscess. No free air. No free fluid. No dilated loops of bowel. No adenopathy. No aortic aneurysm. There is a small fat containing umbilical hernia. There is compression deformity of the inferior endplate of L1 and the superior endplate of T11, probably chronic. No focal lytic or blastic bone lesions. No other significant findings. Thank you for allowing us to participate in the care of your patient. PHYLLIS
[2021-05-06] MEDS ORDERED: Morphine 2 MG/ML SYRINGE IVPUSH PRN (16:23)
[2021-05-06] MEDS ORDERED: Promethazine 6.25 MG in Sodium Chloride 0.9% 50 ML IV PRN (16:41)
[2021-05-06] MEDS ORDERED: Dextrose 5%-0.45% NaCl 1,000 ML IV SCH (16:45)
[2021-05-06] MEDS ORDERED: metroNIDAZOLE/Normal Saline 500 MG in Premix Bag 1 BAG IV SCH (17:00)
[2021-05-06] MEDS ORDERED: Cefepime 1 GM Vial IM SCH (17:00)
--- NOTE | 2021-05-06 17:39 | EDM.PDOC ---
ED HPI GENERAL MEDICAL PROBLEM - General Chief Complaint: Neuro Symptoms/Deficits Stated Complaint: LOW BP, LOW RESPONSIVENESS Time Seen by Provider: 05/06/21 12:30 Source of Information: Reports: [facility] Records History Limitations: Reports: Altered Mental Status - History of Present Illness INITIAL COMMENTS - FREE TEXT/NARRATIVE: Pt became unresponsive [facility]tt [facility] minutes ago at the [facility] a [facility]. He also started leaning to the Rt. B.S was 49. OJ was given followed by Glucagon. F/U B.S was in the 90's. He has a pulse and is breathing on his own. - Related Data Allergies Allergy/AdvReac Type Severity Reaction Status Date / Time No Known Allergies Allergy Verified 11/20/20 12:42 Home Meds: Home Meds Insulin Aspart [NovoLOG] 20 units SQ TID 12/03/14 [History] Simvastatin 20 mg PO QPM 12/03/14 [History] risperiDONE [RisperiDAL] 1 mg PO BID 12/03/14 [History] FLUoxetine HCl [Fluoxetine HCl] 50 mg PO DAILY 12/04/14 [History] Multivitamin [Multi-Vitamin Daily] 1 tab PO DAILY 12/04/14 [History] Calcium Carbonate [Calcium] 600 mg PO BID 08/18/18 [History] Liraglutide [Victoza 3-Addy] 0.6 mg SUBCUT DAILY 08/18/18 [History] Acetaminophen [Tylenol] 650 mg PO TID 11/20/20 [History] Calcitonin,[place],Synthetic [Calcitonin-[place]] 1 spray INH DAILY 11/20/20 [History] Ciprofloxacin HCl [Cipro] 500 mg PO BID 11/20/20 [History] Famotidine 20 mg PO BID 11/20/20 [History] Furosemide [Lasix] 40 mg PO BID 11/20/20 [History] Gabapentin [Neurontin] 100 mg PO BID 11/20/20 [History] Insulin Detemir [Levemir Flextouch] 40 unit SQ BEDTIME 11/20/20 [History] Loperamide HCl [Imodium A-D] 2 mg PO Q1H 11/20/20 [History] Losartan Potassium [Cozaar] 75 mg PO DAILY 11/20/20 [History] Magnesium Hydroxide [Milk of Magnesia] 30 ml PO BID PRN 11/20/20 [History] Melatonin 6 mg PO BEDTIME 11/20/20 [History] Meloxicam 7.5 mg PO BID 11/20/20 [History] Menthol [Biofreeze] 1 applic TOP BID 11/20/20 [History] Potassium Chloride [Klor-Con 10] 10 meq PO DAILY 11/20/20 [History] hydrOXYzine HCL [Hydroxyzine HCl] 25 mg PO TID 11/20/20 [History] hydroCHLOROthiazide [Hydrochlorothiazide] 25 mg PO DAILY 11/20/20 [History] traZODone HCl [Trazodone HCl] 50 mg PO DAILY 11/20/20 [History] Past Medical History Cardiovascular History: Reports: Heart Failure, High Cholesterol, Hypertension Respiratory History: Reports: None Gastrointestinal History: Reports: GERD Genitourinary History: Reports: Urinary Incontinence Other Musculoskeletal History: wheel chair or bed ridden Neurological History: Reports: CVA Other Neuro History: dementia Psychiatric History: Reports: Depression Endocrine/Metabolic History: Reports: Diabetes, Type II Hematologic History: Reports: None Immunologic History: Reports: None Oncologic (Cancer) History: Reports: None Other Dermatologic History: Skin lesions, skin tags, numerous moles - Infectious Disease History Infectious Disease History: Reports: Chicken Pox Social & Family History - Family History Family Medical History: No Pertinent Family History - Tobacco Use Tobacco Use Status *Q: Never Tobacco User Second Hand Smoke Exposure: No - Caffeine Use Caffeine Use: Reports: Soda - Recreational Drug Use Recreational Drug Use: No - Living Situation & Occupation Living situation: Reports: Extended Care Facility Occupation: Disabled ED ROS GENERAL - Review of Systems Review Of Systems: Comprehensive ROS is negative, except as noted in HPI. Neurological: Reports: Other (LOC.) ED EXAM, GENERAL - Physical Exam Exam: See Below Free Text/Narrative:: Pt has loud snoring respirations. No coughing. He does not respond to verbal or physical stimuli. Vital signs are reviewed and he is hypotensive. Exam Limited By: Altered Mental Status Respiratory/Chest: Rales, Rhonchi (throughout.) #1 Interpretation EKG Date: 05/06/21 Time: 13:30 Rate (Beats/Min): 85 Course - Vital Signs Last Recorded V/S: Last Vital Signs Temp 96.9 F 05/06/21 16:37 Pulse 95 05/06/21 16:37 Resp 20 05/06/21 16:37 BP 120/51 L 05/06/21 16:37 Pulse Ox 97 05/06/21 16:37 - Orders/Labs/Meds Orders: Active Orders 24 hr Category Date Time Status EKG Documentation Completion [RC] ASDIRECTED Care 05/06/21 13:05 Active CULTURE BLOOD [BC] Stat Lab 05/06/21 13:20 Received Norepinephrine [Levophed] 4 mg Med 05/06/21 14:45 Active Dextrose 5% in Water 250 ml IV ASDIRECTED Medication Orders Cefepime HCl (Cefepime 1 Gm Vial) 1 gm IM Q12H [facility] Enoxaparin Sodium (Enoxaparin 40 Mg/0.4 Ml Syringe) 40 mg SUBCUT DAILY ZA[facility]AA Norepinephrine Bitartrate 4 mg (/ Dextrose/Water) 254 mls @ 30.48 mls/hr IV ASDIRECTED ZAHRAA Last Admin: 05/06/21 13:20 Dose: 30.48 mls/hr Documented by: ELIZABETH Dextrose/Sodium Chloride (Dextrose 5%-1/2 Ns) 1,000 mls @ 75 mls/hr IV ASDIRECTED ZAHRAA Promethazine HCl 6.25 mg/ (Sodium Chloride) 50.25 mls @ 200 mls/hr IV Q6H PRN PRN Reason: Nausea/Vomiting Vancomycin HCl 1 gm/ Sodium (Chloride) 250 mls @ 167 mls/hr IV Q12H [facility] Metronidazole 500 mg/ Premix 100 mls @ 100 mls/hr IV Q8H [facility] Morphine Sulfate (Morphine 2 Mg/Ml Syringe) 2 mg IVPUSH Q4H PRN PRN Reason: Pain Non-Formulary Medication (Insulin Aspart [Novolog]) 20 units SQ TID [facility] Non-Formulary Medication (Insulin Detemir [Levemir Flextouch]) 40 unit SQ BEDTIME ZA[facility]AA Non-Formulary Medication (Liraglutide [Victoza]) 0.6 mg SUBCUT DAILY [facility] Labs: Laboratory Tests 05/06/21 05/06/21 05/06/21 Range/Units 13:04 13:04 13:04 WBC 9.6 (4.0-11.0) K/uL RBC 3.48 L (4.50-6.50) M/uL Hgb 11.2 L (13.0-18.0) g/dL Hct 34.2 L (40.0-54.0) % MCV 98 H (76-96) fL MCH 32.2 H (27.0-32.0) pg MCHC 32.7 (31.0-35.0) g/dL RDW 13.9 (11.0-16.0) % Plt Count 246 (150-400) K/uL MPV 11.4 H (6.0-10.0) fL Neut % (Auto) 70.5 H (45.0-70.0) % Lymph % (Auto) 17.3 L (20.0-40.0) % [place] % (Auto) 8.9 (3.0-10.0) % Eos % (Auto) 2.6 (1.0-5.0) % Baso % (Auto) 0.7 H (0.0-0.5) % Neut # (Auto) 6.77 (2.00-7.50) K/uL Lymph # (Auto) 1.66 (1.50-4.00) K/uL [place] # (Auto) 0.85 H (0.20-0.80) K/uL Eos # (Auto) 0.25 (0.04-0.40) K/uL Baso # (Auto) 0.07 (0.02-0.10) K/uL D-Dimer, Quantitative 166 (0-400) ng/mL Sodium 147 H (136-145) mmol/L Potassium 3.6 (3.5-5.1) mmol/L Chloride 108 H (98-107) mmol/L Carbon Dioxide 30.5 (21.0-32.0) mmol/L Anion Gap 12.1 (5.0-15.0) mmol/L BUN 25 (8-26) mg/dL Creatinine 1.91 H (0.70-1.30) mg/dL Est Cr Clr Drug Dosing TNP Estimated GFR (MDRD) 35 L (>60) MLS/MIN BUN/Creatinine Ratio 13.1 (6-25) Glucose 119 H D (74-100) mg/dL Lactic Acid (0.4-2.0) mmol/L Calcium 9.2 (8.5-10.1) mg/dL Total Bilirubin 0.3 (0.0-1.0) mg/dL AST 16 (15-37) U/L ALT 15 (12-78) U/L Alkaline Phosphatase 80 (46-116) U/L Troponin I (0.000-0.060) ng/mL B-Natriuretic Peptide (0-125) pg/mL Total Protein 6.7 (6.4-8.2) g/dL Albumin 3.0 L (3.4-5.0) g/dL Globulin 3.7 (2.2-4.2) g/dL Albumin/Globulin Ratio 0.8 (0.8-2.0) SARS CoV-2 RNA Rapid BHARAT 05/06/21 05/06/21 05/06/21 Range/Units 13:04 13:10 13:26 WBC (4.0-11.0) K/uL RBC (4.50-6.50) M/uL Hgb (13.0-18.0) g/dL Hct (40.0-54.0) % MCV (76-96) fL MCH (27.0-32.0) pg MCHC (31.0-35.0) g/dL RDW (11.0-16.0) % Plt Count (150-400) K/uL MPV (6.0-10.0) fL Neut % (Auto) (45.0-70.0) % Lymph % (Auto) (20.0-40.0) % [place] % (Auto) (3.0-10.0) % Eos % (Auto) (1.0-5.0) % Baso % (Auto) (0.0-0.5) % Neut # (Auto) (2.00-7.50) K/uL Lymph # (Auto) (1.50-4.00) K/uL [place] # (Auto) (0.20-0.80) K/uL Eos # (Auto) (0.04-0.40) K/uL Baso # (Auto) (0.02-0.10) K/uL D-Dimer, Quantitative (0-400) ng/mL Sodium (136-145) mmol/L Potassium (3.5-5.1) mmol/L Chloride (98-107) mmol/L Carbon Dioxide (21.0-32.0) mmol/L Anion Gap (5.0-15.0) mmol/L BUN (8-26) mg/dL Creatinine (0.70-1.30) mg/dL Est Cr Clr Drug Dosing Estimated GFR (MDRD) (>60) MLS/MIN BUN/Creatinine Ratio (6-25) Glucose (74-100) mg/dL Lactic Acid (0.4-2.0) mmol/L Calcium (8.5-10.1) mg/dL Total Bilirubin (0.0-1.0) mg/dL AST (15-37) U/L ALT (12-78) U/L Alkaline Phosphatase (46-116) U/L Troponin I 0.026 (0.000-0.060) ng/mL B-Natriuretic Peptide 43224 H (0-125) pg/mL Total Protein (6.4-8.2) g/dL Albumin (3.4-5.0) g/dL Globulin (2.2-4.2) g/dL Albumin/Globulin Ratio (0.8-2.0) SARS CoV-2 RNA Rapid BHARAT Negative 05/06/21 Range/Units 13:27 WBC (4.0-11.0) K/uL RBC (4.50-6.50) M/uL Hgb (13.0-18.0) g/dL Hct (40.0-54.0) % MCV (76-96) fL MCH (27.0-32.0) pg MCHC (31.0-35.0) g/dL RDW (11.0-16.0) % Plt Count (150-400) K/uL MPV (6.0-10.0) fL Neut % (Auto) (45.0-70.0) % Lymph % (Auto) (20.0-40.0) % [place] % (Auto) (3.0-10.0) % Eos % (Auto) (1.0-5.0) % Baso % (Auto) (0.0-0.5) % Neut # (Auto) (2.00-7.50) K/uL Lymph # (Auto) (1.50-4.00) K/uL [place] # (Auto) (0.20-0.80) K/uL Eos # (Auto) (0.04-0.40) K/uL Baso # (Auto) (0.02-0.10) K/uL D-Dimer, Quantitative (0-400) ng/mL Sodium (136-145) mmol/L Potassium (3.5-5.1) mmol/L Chloride (98-107) mmol/L Carbon Dioxide (21.0-32.0) mmol/L Anion Gap (5.0-15.0) mmol/L BUN (8-26) mg/dL Creatinine (0.70-1.30) mg/dL Est Cr Clr Drug Dosing Estimated GFR (MDRD) (>60) MLS/MIN BUN/Creatinine Ratio (6-25) Glucose (74-100) mg/dL Lactic Acid 1.3 (0.4-2.0) mmol/L Calcium (8.5-10.1) mg/dL Total Bilirubin (0.0-1.0) mg/dL AST (15-37) U/L ALT (12-78) U/L Alkaline Phosphatase (46-116) U/L Troponin I (0.000-0.060) ng/mL B-Natriuretic Peptide (0-125) pg/mL Total Protein (6.4-8.2) g/dL Albumin (3.4-5.0) g/dL Globulin (2.2-4.2) g/dL Albumin/Globulin Ratio (0.8-2.0) SARS CoV-2 RNA Rapid [facility]ARAT Meds: Medications Generic Name Dose Route Start Last Admin Trade Name Freq PRN Reason Stop Dose Admin Cefepime HCl 1 gm 05/06/21 17:00 Cefepime 1 Gm Vial IM Q12H [facility] Enoxaparin Sodium 40 mg 05/06/21 16:41 Enoxaparin 40 Mg/0.4 Ml Syringe SUBCUT DAILY [facility]AA Norepinephrine Bitartrate 4 mg 254 mls @ 30.48 mls/hr 05/06/21 14:45 05/06/21 13:20 / Dextrose/Water IV 30.48 mls/hr ASDIRECTED ZAHRAA Administration 8 MCG/MIN Dextrose/Sodium Chloride 1,000 mls @ 75 mls/hr 05/06/21 16:45 Dextrose 5%-1/2 Ns IV ASDIRECTED ZAHRAA Promethazine HCl 6.25 mg/ 50.25 mls @ 200 mls/hr 05/06/21 16:41 Sodium Chloride IV Q6H PRN Nausea/Vomiting Vancomycin HCl 1 gm/ Sodium 250 mls @ 167 mls/hr 05/06/21 17:00 Chloride IV Q12H ZAHRAA Metronidazole 500 mg/ Premix 100 mls @ 100 mls/hr 05/06/21 17:00 IV Q8H ZAHRAA Morphine Sulfate 2 mg 05/06/21 16:23 Morphine 2 Mg/Ml Syringe IVPUSH Q4H PRN Pain Non-Formulary Medication 20 units 05/06/21 20:00 Insulin Aspart [Novolog] SQ TID [facility]AA Non-Formulary Medication 40 unit 05/06/21 20:00 Insulin Detemir [Levemir Flextouch] SQ BEDTIME ZAHRAA Non-Formulary Medication 0.6 mg 05/07/21 08:00 Liraglutide [Victoza] SUBCUT DAILY [facility] Discontinued Medications Generic Name Dose Route Start Last Admin Trade Name Freq PRN Reason Stop Dose Admin Norepinephrine Bitartrate 8 mg 258 mls @ 3.87 mls/hr 05/06/21 13:15 05/06/21 13:20 / Dextrose/Water IV 2 mcg/min TITRATE ZAHRAA 3.87 mls/hr Administration Protocol 2 MCG/MIN Morphine Sulfate 2 mg 05/06/21 13:36 05/06/21 13:30 Morphine 2 Mg/Ml Syringe IVPUSH 05/06/21 13:37 2 mg ONETIME ONE Administration Morphine Sulfate Confirm 05/06/21 13:48 05/06/21 16:42 Morphine 4 Mg/Ml Vial Administered 05/06/21 13:49 Not Given Dose 4 mg .ROUTE .STK-MED ONE - Re-Assessments/Exams Free Text/Narrative Re-Assessment/Exam: BP was dropping to 70's / 40's. Levophed was started at 8 mcg's. His BP respondes nicely to 128/64. O2 was used initially, but was weaned off with Sats in the 90's. Pt's breathing improved and his lungs are now mostly clear. I did have a conversation with his and daughter. They do not want any aggressive measures - He is DNR/DNI. He will be admitted for Abx and D51/2 NS per Hospitalist request. 05/06/21 17:42 05/06/21 17:48 Departure - Departure Time of Disposition: 15:30 Disposition: DC/Tfer to Acute Hospital 02 Condition: Fair Clinical Impression: Hypoglycemia CHF (congestive heart failure) Qualifiers: Heart failure type: unspecified Heart failure chronicity: acute on chronic Qualified Code(s): I50.9 - Heart failure, unspecified - Discharge Information *PRESCRIPTION DRUG MONITORING PROGRAM REVIEWED*: Not Applicable *COPY OF PRESCRIPTION DRUG MONITORING REPORT IN PATIENT EMERSON: Not Applicable Sepsis Event Note (ED) - Evaluation Sepsis Screening Result: No Definite Risk - Focused Exam Vital Signs: Vital Signs Temp Pulse Resp BP Pulse Ox 05/06/21 14:45 20 125/59 L 100 05/06/21 13:54 88 94/40 L 05/06/21 13:15 80 30 H 85/29 L 99 05/06/21 13:06 99 28 H 72/35 L 05/06/21 12:26 97.9 F 90 30 H 102/84 85 L - My Orders Last 24 Hours: My Active Orders 05/06/21 13:05 EKG Documentation Completion [RC] ASDIRECTED 05/06/21 13:20 CULTURE BLOOD [BC] Stat 05/06/21 14:45 Norepinephrine [Levophed] 4 mg Dextrose 5% in Water 250 ml IV ASDIRECTED - Assessment/Plan Last 24 Hours: My Active Orders 05/06/21 13:05 EKG Documentation Completion [RC] ASDIRECTED 05/06/21 13:20 CULTURE BLOOD [BC] Stat 05/06/21 14:45 Norepinephrine [Levophed] 4 mg Dextrose 5% in Water 250 ml IV ASDIRECTED
[2021-05-06] MEDS: Enoxaparin 40 MG/0.4 ML Syringe SUBCUT SCH (19:41)
[2021-05-06] MEDS ORDERED: Non-Formulary Medication 1 Each (Insulin Detemir [Levemir Flextouch] 100 UNIT/ML Insuln.Pe SQ SCH (20:00)
[2021-05-06] MEDS: Vancomycin 1.5 GM in Sodium Chloride 0.9% 500 ML IV SCH (20:26)
[2021-05-06] MEDS: INSULIN ASPART 100 UNIT/1 ML SQ SCH (20:51)
[2021-05-06] MEDS ORDERED: metroNIDAZOLE/Normal Saline 100 ML ONE (22:08)
[2021-05-06] MEDS: metroNIDAZOLE/Normal Saline 500 MG in Premix Bag 1 BAG IV SCH (22:26)
--- NOTE | 2021-05-06 23:05 | ADMIT ---
He is a longterm resident who was brought to the ER today after becoming nonresponsive and having a low blood sugar. He was initially hypotensive in the emergency room. Levophed was given, which brought his blood pressure up nicely. Vital signs also revealed he was a little hypoxic initially, but this quickly resolved as well weaning off the oxygen in the ER. His vital signs after this were quite good. Workup revealed that his BNP was significantly elevated over 10,000. CT of the abdomen showed possible diverticulitis and CT of the chest, questionable viral pneumonia. The patient will be admitted for broad-spectrum antibiotics and gentle fluid hydration. I did consult with the e-hospitalist who recommended initial orders pertaining to this. The patient's code status is DNR/DNI. His family does not want aggressive measures done and no transferring out of the [facility]. Family agreed to antibiotics and the initial treatment measures after they were explained to them, and we will watch the patient overnight and see how he does on observation. We are currently holding all of his p.o. medications because he is unresponsive. I understand the patient's baseline is quite limited. He has very limited speech due to a TIA and stroke history. He was moaning at times in the emergency room. Therefore, we gave him 2 mg of morphine which seemed to help. The family wants to continue doing this and I feel this is reasonable. He will be watched closely overnight with 1 hour blood glucose checks x4 and then every other hour throughout the remaining portion of the night. CRS/MODL /[id number]
[2021-05-07] MEDS ORDERED: 50% Dextrose in Water 50 ML Syringe IV PRN (05:05)
[2021-05-07] MEDS ORDERED: metroNIDAZOLE/Normal Saline 100 ML ONE ×2 (06:00→21:52)
[2021-05-07] MEDS: metroNIDAZOLE/Normal Saline 500 MG in Premix Bag 1 BAG IV SCH ×3 (06:19→22:30)
[2021-05-07] MEDS ORDERED: Non-Formulary Medication 1 Each (Liraglutide [Victoza] 18 MG/3 ML Pen) SUBCUT SCH (08:00)
[2021-05-07] MEDS: INSULIN ASPART 100 UNIT/1 ML SQ SCH ×2 (09:52→13:59)
[2021-05-07] MEDS: Enoxaparin 40 MG/0.4 ML Syringe SUBCUT SCH (10:12)
[2021-05-07] MEDS: Cefepime 1 GM Vial IM SCH ×2 (10:15→20:00)
[2021-05-07] MEDS ORDERED: Insulin Aspart 100 Units/ML 3 ML Pen SUBCUT ONE (16:40)
[2021-05-07] MEDS ORDERED: Menthol/Zinc Oxide Ointment 113 GM Tube TOP PRN (17:15)
[2021-05-07] MEDS ORDERED: Menthol/Zinc Oxide Ointment 113 GM Tube TOP ONE (17:16)
[2021-05-07] MEDS: Insulin Aspart 100 Units/ML 3 ML Pen SUBCUT SCH (17:59)
[2021-05-07] MEDS ORDERED: Insulin Aspart 100 Units/ML 3 ML Pen SUBCUT SCH (18:00)
--- NOTE | 2021-05-07 18:58 | PN ---
DATE OF VISIT: 05/07/2021 Today, I rechecked this patient, Troy Sears. He has been resting quietly today. His blood sugar did drop to 49 this morning, but it did come back. Most recent blood sugar checked at 2 p.m. was 223. At this point, it seems like the patient is getting close to his baseline status. He did eat 70% of his noon meal with some encouragement, which is normal for him. I did talk with the hospitalist service, Dr. Hu, who feels the patient is a good candidate for comfort cares at this point, and I agree. We will, therefore, discontinue his IV fluids and all long-term insulin. He will have insulin only on a sliding scale, checking blood sugar with meals, and treating only blood sugars greater than 250. I did meet with the patient's and daughter and discussed these treatment measures with them, and they are in agreement with this. Arrangements will be made tomorrow for the patient to return to the skilled nursing with comfort cares and possibly an oral antibiotic. His family members tell me that he can take pills, usually they need to be put into something and sometimes crushed if they are big. The patient's vital signs today have remained stable. Most recent blood pressure 132/63, pulse 88, respirations 16, O2 saturations are 92% on room air. The patient appears comfortable at rest and lung sounds this afternoon reveal the lungs are basically clear. Nursing staff did notice some expiratory wheezes earlier, but I do not hear any at this time. CRS/MODL /[id number]
[2021-05-07] MEDS: Vancomycin 1.5 GM in Sodium Chloride 0.9% 500 ML IV SCH (20:35)
[2021-05-07] MEDS ORDERED: Vancomycin 500 MG SDV ONE (20:39)
[2021-05-07] MEDS ORDERED: Vancomycin 1 GM SDV ONE (20:40)
[2021-05-08] MEDS ORDERED: metroNIDAZOLE/Normal Saline 100 ML ONE (07:40)
[2021-05-08] MEDS: metroNIDAZOLE/Normal Saline 500 MG in Premix Bag 1 BAG IV SCH ×2 (07:41→13:58)
[2021-05-08] MEDS: Enoxaparin 40 MG/0.4 ML Syringe SUBCUT SCH (07:56)
[2021-05-08] MEDS: Cefepime 1 GM Vial IM SCH (08:04)
[2021-05-08] MEDS: Insulin Aspart 100 Units/ML 3 ML Pen SUBCUT SCH ×2 (08:06→12:00)
[2021-05-08 12:01] VITALS: BP 162/66; PULSE 97
[2021-05-08] MEDS ORDERED: MELOXICAM 7.5 MG PO SCH (20:00)
[2021-05-08] MEDS ORDERED: Furosemide 40 MG Tab PO SCH (20:00)
[2021-05-08] MEDS ORDERED: Non-Formulary Medication 1 Each (Menthol [Biofreeze] 118 ML Gel..Ml.) TOP SCH (20:00)
--- NOTE | 2021-05-09 00:58 | DISCH ---
This patient has been an inpatient for the last 2 days with multiple issues. He had some sort of an episode where he had loss of consciousness. He was brought to the emergency room. He was diagnosed with CHF, hypoglycemia, questionable viral pneumonia, and questionable diverticulitis. The patient is unable to speak and that is chronic for him due to previous CVAs and other medical conditions. His condition has stabilized as an inpatient, and he will be discharged back to long-term care where he is currently living. We will remove much of his medications, keeping him on a few different things that staff and family members have agreed to. The patient's vital signs have remained stable, and he has been eating fairly well over the last couple of meals with prompting. CRS/MODL /[id number]
[2021-05-09] MEDS ORDERED: Potassium Chloride 10 MEQ Tab.ER PO SCH (08:00)
--- NOTE | 2021-05-09 19:15 | PN ---
DATE OF VISIT: 05/07/2021 HISTORY OF PRESENT ILLNESS: This 75-year-old male was admitted yesterday through the emergency room. He is currently being treated with antibiotics for CHF and diverticulitis. The patient had an episode of hypoglycemia yesterday morning, with a blood sugar dropping down to 49 again this morning. This was corrected by the time I saw the patient this morning. Nursing staff states that he has been mostly just sleeping. He has not had any issues with shortness of breath or coughing. Upon entering the patient's room, his daughter is with him. She tells me that he is doing okay and is close to his baseline status where he sleeps most of the time, but does arouse with verbal and physical stimuli for meals. PHYSICAL EXAMINATION: VITAL SIGNS: Today revealed a current blood sugar of 79, blood pressure 133/52, respirations 18, pulse 78, O2 sats are 100% on room air. GENERAL: The patient is sleeping quietly. He appears relaxed and in no respiratory distress. LUNGS: Lung sounds are slightly reduced due to the patient not taking deep breaths. They are clear. SKIN: Warm and dry. CARDIAC: Heart sounds distinct without murmurs. TREATMENT PLAN: I will continue to go up the hospitalist's recommendations for medications. I will not make any further changes at this time. I believe that his hypoglycemic reactions are being addressed through the hospitalist service. DELORIS/MODChandana /[id number]
== END 2021-05-08 14:39 ==
LOC: LB.ED 12:26 → LB.MS 16:14
PROVIDERS: ADMIT Physician Assistant; ATTEND Physician Assistant
DX: E11.649 Type 2 diabetes mellitus with hypoglycemia without coma (principal); I11.0 Hypertensive heart disease with heart failure; I50.9 Heart failure, unspecified; E78.00 Pure hypercholesterolemia, unspecified; I95.9 Hypotension, unspecified; Z86.73 Personal history of transient ischemic attack (TIA), and cerebral infarction without residual deficits; Z79.899 Other long term (current) drug therapy; Z20.822 Contact with and (suspected) exposure to COVID-19
CPT/HCPCS: 36415; 70450; 71045; 71250; 74176; 80053; 82947; 83605; 83880; 84484; 85025; 85379; 87040; 87070; 92526-GN; 92610-GN; 93005; 96365; 96366; 96367; 96372; 96375; 96376; 99285-25; A9270-GY; G0378; J0692; J1650; J2270; J3370; J3490; J7040; J7042; J7060; U0002